=== PATIENT | female | born 1985 | race American Indian/Alaskan Native ===

== ENCOUNTER 2018-04-19 16:50 | Inpatient (IN) | payer OTHER ==
[~2018-04-19] VITALS: Ht 157.5 cm; Wt 110.7 kg
--- NOTE | ~2018-04-19 | OR ---
[facility] [address] [place], [place] [address] Draft DATE OF OPERATION: 04/20/2018 SURGEON: Josefina Mejía MD LABORER DRIVER: Radha Acuna DO. PREOPERATIVE DIAGNOSES: Term , gestational diabetes, prolonged deceleration phase, and arrest of dilation. POSTOPERATIVE DIAGNOSES: Term , gestational diabetes, prolonged deceleration phase, and arrest of dilation, delivered. PROCEDURE PERFORMED: Primary section with low segment transverse uterine incision. ANESTHESIA: Spinal. ESTIMATED BLOOD LOSS: 1000 mL. DRAINS: Patrick catheter. INDICATIONS AND FINDINGS: The patient is a 32-year-old female, 3, para 1-1-0-2, admitted at 38-6/7th weeks in active labor. Her has been complicated by morbid obesity with excess weight gain. She has gestational diabetes, which has been poorly controlled. The patient has also had polyhydramnios. She was admitted under labor and artificial rupture of membranes was carried out with a large amount of fluid seen. Over the next several hours, she progressed to approximately 5 cm, but then failed to make any further progress. At that point, Pitocin augmentation was begun. She eventually did progress to about 9.5 cm. However, she did not progress beyond that. She was unable to push past that lip and in fact, her cervix seemed to be more prominent with pushing. After approximately 3.5 hours, a decision was made to proceed with section. She was taken to the operating room where she was delivered a little boy from the LOT position via lower segment transverse uterine incision with Apgars of 8 and 9, and weight of 8 PATIENT NAME: CORTEZ MITCHELL OPERATIVE REPORT DATE OF : 89 REPORT #: [id number] PHYSICIAN: JOSEFINA MEJÍA MD PCP: WILLIAM SNELL REPORT IS CONFIDENTIAL AND NOT TO BE RELEASED WITHOUT AUTHORIZATION [facility] [address] [place], [place] [address] Draft pounds 13 ounces. The uterus, tubes, ovaries, and placenta appeared normal. There was some uterine atony, which responded to IV Pitocin as well as IM methargen. The baby was not engaged in the pelvis at all and was easily delivered from that position. DESCRIPTION OF PROCEDURE: The patient was prepped and draped in the supine position. A Pfannenstiel skin incision was made and carried down through the fascia. The incision was extended laterally. The inferior and superior fascial flaps were then created. The muscles were bluntly divided and the peritoneum entered, and the incision extended bluntly. The Gerard retractor was placed. The uterine incision was made at the upper aspect of the peritoneal reflection. The baby was delivered with the above findings and had got to the pediatric staff in attendance. The placenta was removed manually and the uterus explored with a lap tape assuring no remaining fragments. The edges of the incision were identified and the uterus closed in 2 layers using #0 Monocryl. The first layer was a running locking stitch and the second was a vertical imbricating stitch. Additional [id number] was required near the right side for control of bleeding. The abdomen was then copiously irrigated and inspected, and good hemostasis was noted. Evicel was doubled over the incision to aid in hemostasis, however. The retractor was removed and the peritoneum identified. An ACell graft was laid over the lower segment to aid in healing. The peritoneum was then closed with a running suture of 3-0 Vicryl. The muscles were brought together with interrupted sutures of #0 Vicryl. There was some bleeding at the inferior aspect of the inferior fascial flap and this was controlled with several sutures of #0 Vicryl. There was also some bleeding from the perforators on the upper right side underneath the fascia and this was also controlled with sutures of #0 Vicryl. This layer was then irrigated and found to be hemostatic. ACell powder was sprinkled over the muscles to aid in healing. Evicel was used at the lower aspect of the fascial flap for control of hemostasis as well. Following this, the fascia was closed from each angle to the midline with a running suture of #0 Vicryl. The subcutaneous tissue was irrigated and bleeding points controlled with cautery. The subcutaneous was closed with a running suture of 3-0 Vicryl. The skin was closed with rebel. All sponge and needle counts were correct. The patient tolerated the procedure well and was taken to the recovery room in good condition. Josefina Mejía MD PJW/MODL /[id number] PATIENT NAME: CORTEZ MITCHELL OPERATIVE REPORT DATE OF : 89 REPORT #: [id number] PHYSICIAN: JOSEFINA MEJÍA MD PCP: WILLIAM SNELL REPORT IS CONFIDENTIAL AND NOT TO BE RELEASED WITHOUT AUTHORIZATION [place] [id number] Draft cc: Radha Acuna, DO Copies: RADHA ACUNA DO ~ PATIENT NAME: CORTEZ MITCHELL KALA OPERATIVE REPORT DATE OF : 89 REPORT #: [id number] PHYSICIAN: JOSEFINA MEJÍA MD PCP: WILLIAM SNELL REPORT IS CONFIDENTIAL AND NOT TO BE RELEASED WITHOUT AUTHORIZATION
[~2018-04-19 16:50] MED LIST: AMOXICILLIN500 MG PO; CALCIUM 600 +1 EAC6 PO; EXJADE125 MG PO; FOLIC ACID 2.51 EACH PO; FOLIC ACID1 MG PO; IBUPROFEN800 MG PO; IRON45 MG PO; KEFLEX500 MG PO; LEVAQUIN500 MG PO; NORCO 5-325 TA1 EACH PO; OB COMPLETE WI1 EACH PO; PRENATAL PLUS1 EAC2 PO; VITAMIN D5000 UNIT PO; XELJANZ5 MG PO
--- NOTE | 2018-04-19 18:07 | PR ---
[facility] [address] [facility] [place], [place] [address] Signed Progress Notes IP Datetime Report Generated by ARUN: 04/19/2018 18:07 PROGRESS NOTES: [id number] Impression: Reassuring heart rate Procedures: Artificial ROM; Sterile Vag Exam Plan: Continue present management Informed Consent Obtain: Vaginal Delivery; Risks, Benefits and Alternatives Discussed VITAL SIGNS: [id number] Vital Signs: Reviewed; Within Normal Limits EXAM: [id number] Dilatation: 4.0 Effacement: 70 Station: -3 Uterine Contractions: q 1 to 4 min MEMBRANES: [id number] Membrane Status: Intact ROM Note: AROM with copious clear fluid seen Comments: Will continue to closely monitor. Fetus A: [id number] FHR Baseline: 140 Variability: Moderate 6-25bpm Accelerations: 15X15 Decelerations: None FHR Category: Category I Presentation: Vertex Comments on Fetus A: No evidence of metabolic acidosis. Fetus B: [id number] Signing Physician: Josefina Mejía MD Copies: ~ *Electronically Signed* 04/19/18 1807 JOSEFINA MEJÍA MD PATIENT NAME: CORTEZ MITCHELL PROGRESS NOTE DATE OF : 89 PHYSICIAN: JOSEFINA MEJÍA MD RPT #: [id number] REPORT IS CONFIDENTIAL AND NOT TO BE RELEASED WITHOUT AUTHORIZATION
--- NOTE | 2018-04-20 08:43 | PR ---
[facility] [address] [place], [place] [address] Signed Progress Notes IP Datetime Report Generated by ARUN: 04/20/2018 08:43 PROGRESS NOTES: [id number] Impression: Arrest of dilatation/descent Procedures: Sterile Vag Exam Plan: Deliver- Section Informed Consent Obtain: Section Delivery; Risks, Benefits and Alternatives Discussed VITAL SIGNS: [id number] Vital Signs: Reviewed; Within Normal Limits EXAM: [id number] Dilatation: 9.5 Effacement: 90 Station: -2 Uterine Contractions: q 1 to 3 min MEMBRANES: [id number] Membrane Status: Intact ROM Note: AROM with copious clear fluid seen Comments: No progress over the last 3 hrs. Pushing actually makes cervix thicker and more prominent. I do not feel we will be successful with a vaginal delivery and I am concerned about the size of the baby. Had previously discussed need for normal progress to consider vaginal delivery and she has fallen off the normal curve. Feel C/S is the safest option for delivery. The risks of C/S were discussed and I do feel she is at increased risk of bleeding given the long labor and size of baby. She had no questions and requested no further information. Fetus A: [id number] FHR Baseline: 140 Variability: Moderate 6-25bpm Accelerations: 10X10 Decelerations: Late FHR Category: Category II Presentation: Vertex Comments on Fetus A: overall reassuring but close observation required Fetus B: [id number] Signing Physician: Lynne Mejía MD Copies: *Electronically Signed* 04/20/18 0843 LYNNE MEJÍA MD PATIENT NAME: CORTEZ MITCHELL PROGRESS NOTE DATE OF : 89 PHYSICIAN: LYNNE MEJÍA MD RPT #: [id number] REPORT IS CONFIDENTIAL AND NOT TO BE RELEASED WITHOUT AUTHORIZATION [address] [place], [place] [address] Signed ~ *Electronically Signed* 04/20/18 08 LYNNE MEJÍA MD PATIENT NAME: CORTEZ MITCHELL PROGRESS NOTE DATE OF : 89 PHYSICIAN: LYNNE MEJÍA MD RPT #: [id number] REPORT IS CONFIDENTIAL AND NOT TO BE RELEASED WITHOUT AUTHORIZATION
--- NOTE | 2018-04-20 10:51 | NUR ---
04/20/18 1051 Liza Guillory 1040-PATIENT ARRIVED BACK TO ROOM 102 FOR PACU RECOVERY. PATIENT AWAKE DENIES PAIN OR NAUSEA. ST. UNABLE TO WIGGLE TOES. FUNDUS FIRM AT UMBILICUS LIGHT RUBRA DRAINAGE ON RAYMOND PAD. S.O AT BEDSIDE. GLUCOSE CHECKED 117 LR WITH 20 PITOCIN INFUSING TO LEFT HAND CDI.
--- NOTE | 2018-04-20 17:42 | PR ---
[facility] [place] [facility] [address] [facility] [place], [place] [address] Signed PP Progress Notes Datetime Report Generated by CPFranc: 04/20/2018 17:42 SUBJECTIVE: [id number] Pain: Within normal limits Pain Comments: felt diaphoretic when sat up. Nausea/Vomiting: Present Nausea/Vomiting Comments: Has needed O2 while asleep today. Flatus Comments: Denies SOB Vital Signs: [id number] Vital Signs: Reviewed Notable Details: tachy EXAM: [id number] Cardiovascular: Normal Respiratory: Abnormal Abdomen/Uterus: Normal Lochia: Normal Vulva/Perineum: Not Done Breasts: Not Done CVA Tenderness: Not Done Extremities: Normal Exam Comments: Lungs with diffuse exp wheezes IMPRESSION/PLAN/PROCEDURES: [id number] Other Impression: Wheezing, suspect some sleep apnea as well Other Plans: albuterol neb, IS, check CBC Progress Notes: Called with c/o O2 desat in pt and diaphoresis though her exam is normal other than her wheezing. I suspect she has some upper airway obstruction given her size and . Will exclude undiagnosed bleeding as well. Signing Physician: Josefina Mejía MD Copies: ~ *Electronically Signed* 04/20/18 174 JOSEFINA MEJÍA MD PATIENT NAME: CORTEZ MITCHELL PROGRESS NOTE DATE OF : 89 PHYSICIAN: JOSEFINA MEJÍA MD RPT #: [id number] REPORT IS CONFIDENTIAL AND NOT TO BE RELEASED WITHOUT AUTHORIZATION
--- NOTE | 2018-04-21 08:23 | PR ---
[facility] [address] [place], [place] [address] Signed PP Progress Notes Datetime Report Generated by CPFranc: 04/21/2018 08:23 SUBJECTIVE: [id number] Pain: Within normal limits Pain Comments: Has been sleeping most of the time Nausea/Vomiting: Denies Nausea/Vomiting Comments: Has needed O2 while asleep today. Flatus: No Flatus Comments: Denies SOB Vital Signs: [id number] Vital Signs: Reviewed; Within Normal Limits Notable Details: tachy EXAM: [id number] Cardiovascular: Normal Respiratory: Normal Abdomen/Uterus: Abnormal Lochia: Normal Vulva/Perineum: Not Done Breasts: Not Done CVA Tenderness: Not Done Extremities: Normal Incision: Normal Progress: Abnormal Exam Comments: Abdomen with active BS. Fundus firm, NT @ U-1. H/H 7.3/24, WBC 14.4, plat 292k IMPRESSION/PLAN/PROCEDURES: [id number] Impression: Normal progression Other Impression: Wheezing, suspect some sleep apnea as well Other Plans: ambulate, D/C heller, shower Procedures: None Progress Notes: Doing well though has not been at all since delivery. Signing Physician: Josefina Mejía MD Copies: ~ *Electronically Signed* 04/21/18 0823 JOSEFINA MEJÍA MD PATIENT NAME: CORTEZ MITCHELL PROGRESS NOTE DATE OF : 89 PHYSICIAN: JOSEFINA MEJÍA MD RPT #: [id number] REPORT IS CONFIDENTIAL AND NOT TO BE RELEASED WITHOUT AUTHORIZATION
--- NOTE | 2018-04-22 09:17 | PR ---
[facility] [address] [place], [place] [address] Signed PP Progress Notes Datetime Report Generated by ARUN: 04/22/2018 09:17 SUBJECTIVE: [id number] Pain: Within normal limits Pain Comments: Has been caught sleeping w/ baby in bed xs 2 Nausea/Vomiting: Denies Nausea/Vomiting Comments: Has needed O2 while asleep today. Flatus: Yes Flatus Comments: Denies SOB Vital Signs: [id number] Vital Signs: Reviewed; Within Normal Limits Notable Details: tachy EXAM: [id number] Cardiovascular: Not Done Respiratory: Not Done Abdomen/Uterus: Abnormal Lochia: Normal Vulva/Perineum: Not Done Breasts: Not Done CVA Tenderness: Not Done Extremities: Normal Incision: Normal Progress: Normal Exam Comments: Abdomen with active BS. Fundus firm, NT @ U. IMPRESSION/PLAN/PROCEDURES: [id number] Impression: Normal progression Other Impression: Wheezing, suspect some sleep apnea as well Plan: Remove rebel; Discharge Other Plans: ambulate, D/C heller, shower Procedures: None Progress Notes: Doing well. She is ready for D/C. Reiterated need for baby to sleep in their own space and not in her bed. Signing Physician: Josefina Mejía MD Copies: ~ *Electronically Signed* 04/22/18 0917 JOSEFINA MEJÍA MD PATIENT NAME: CORTEZ MITCHELL PROGRESS NOTE DATE OF : 89 PHYSICIAN: JOSEFINA MEJÍA MD RPT #: [id number] REPORT IS CONFIDENTIAL AND NOT TO BE RELEASED WITHOUT AUTHORIZATION
== END 2018-04-22 15:20 | disposition home or self-care (01) | DRG 787 ==
LOC: FBC 16:50
PROVIDERS: ADMIT Obstetrics & Gynecology
PROC: 10907ZC Drainage of Amniotic Fluid, Therapeutic from Products of Conception, Via Natural or Artificial Opening (ICD-10-PCS; 2018-04-19)
PROC: 10D00Z1 Extraction of Products of Conception, Low, Open Approach (ICD-10-PCS; principal; 2018-04-20 09:00)
DX: O24.420 Gestational diabetes mellitus in childbirth, diet controlled (principal); O99.324 Drug use complicating childbirth; Z3A.39 39 weeks gestation of pregnancy; Z37.0 Single live birth; O99.214 Obesity complicating childbirth; O32.2XX0 Maternal care for transverse and oblique lie, not applicable or unspecified; O36.63X0 Maternal care for excessive fetal growth, third trimester, not applicable or unspecified; O40.3XX0 Polyhydramnios, third trimester, not applicable or unspecified; O99.824 Streptococcus B carrier state complicating childbirth; F12.90 Cannabis use, unspecified, uncomplicated; O99.52 Diseases of the respiratory system complicating childbirth; J45.909 Unspecified asthma, uncomplicated; M06.9 Rheumatoid arthritis, unspecified; O99.89 Other specified diseases and conditions complicating pregnancy, childbirth and the puerperium; R06.2 Wheezing; E55.9 Vitamin D deficiency, unspecified; O99.284 Endocrine, nutritional and metabolic diseases complicating childbirth; O76 Abnormality in fetal heart rate and rhythm complicating labor and delivery; O62.1 Secondary uterine inertia; E66.01 Morbid (severe) obesity due to excess calories; O26.03 Excessive weight gain in pregnancy, third trimester; O75.89 Other specified complications of labor and delivery; Z79.899 Other long term (current) drug therapy; Z88.8 Allergy status to other drugs, medicaments and biological substances; Z87.891 Personal history of nicotine dependence
CPT/HCPCS: 01961; 36415; 85025; 85027; 94640; C1763; J0690; J2274; J2300; J2370; J2405; J2540; J2590; J3010; J7030; J7060; J7120

== ENCOUNTER 2019-12-18 14:38 | Emergency (ER) | payer BC, OTHER ==
[~2019-12-18] VITALS: Ht 157.5 cm; Wt 103.0 kg
--- OUTSIDE RECORDS SUMMARY | ~2019-12-18 | XMS | Clinical Summary ---
Demographics + + + | Address | [address] | | | [place] [address] | + + + | Home Phone | | + + + | Preferred Language | Unknown | + + + | Marital Status | Single | + + + | Spiritism Affiliation | 1041 | + + + | Race | Unknown | + + + | Ethnic Group | Not or | + + + Author + + + | Author | [facility] | | | and [place] | + + + | Organization | [facility] | | | and [place] | + + + | Address | Unknown | + + + | Phone | Unavailable | + + + Support + + +---------+ + | Name | Relationship | Address | Phone | + + +---------+ + | Aroldo Martinez | ECON | Unknown | | + + +---------+ + Care Team Providers + +------+ + | Care Web Press Operator Name | Role | Phone | + +------+ + PCP | Unavailable | + +------+ + Allergies Not on File Medications Not on file Active Problems Not on file Immunizations + + + + | Name | Administration Dates | Next Due | + + + + | INFLUENZA PF | 05/13/2016 | | | QUAD(PED/ADOL/ADULT) | | | | ,PSKT or VIAL | | | + + + + | PNEUMOCOCCAL | 05/13/2016 | | | POLYSACCHARIDE | | | | 23-VALENT (PPSV23) | | | + + + + Family History + +------+ + + | Relation | Name | Status | Comments | + +------+ + + | Father | | Alive | | + +------+ + + | Mother | | | | + +------+ + + Social History + +-------+ +--------+------+ | Tobacco Use | Types | Packs/Day | Years | Date | | | | | Used | | + +-------+ +--------+------+ | Former Smoker | | | | | + +-------+ +--------+------+ + + + | Sex Assigned at | Date Recorded | | | | + + + | Not on file | | + + + Last Filed Vital Signs + + + + + | Vital Sign | Reading | Time Taken | Comments | + + + + + | Blood Pressure | 127/59 | 05/27/2016 12:11 PM | | | | | PST | | + + + + + | Pulse | 90 | 05/27/2016 12:11 PM | | | | | PST | | + + + + + | Temperature | 36.8 C (98.3 F) | 05/27/2016 12:11 PM | | | | | PST | | + + + + + | Respiratory Rate | 20 | 05/27/2016 12:11 PM | | | | | PST | | + + + + + | Oxygen Saturation | - | - | | + + + + + | Inhaled Oxygen | - | - | | | Concentration | | | | + + + + + | Weight | 104.3 kg (229 lb 15 | 05/27/2016 12:11 PM | | | | oz) | PST | | + + + + + | Height | 157.5 cm (5' 2") | 05/27/2016 12:11 PM | | | | | PST | | + + + + + | Body Mass Index | 42.06 | 05/27/2016 12:11 PM | | | | | PST | | + + + + + Plan of Treatment + + + + + | Health Maintenance | Due Date | Last | Comments | | | | Done | | + + + + + | Vaccine: | | | | | Dtap/Tdap/Td (1 - | 7 | | | | Tdap) | | | | + + + + + | Cervical Cancer | | | | | Screening (Pap) | 8 | | | + + + + + | Vaccine: Influenza | | 05/13/19 | | | (#1) | 0 | 17 | | + + + + + Results Not on filefrom Last 3 Months
--- OUTSIDE RECORDS SUMMARY | ~2019-12-18 | XMS | Encounter Summary ---
Demographics + + + | Address | [address] | | | [place] [address] | + + + | Home Phone | | + + + | Preferred Language | Unknown | + + + | Marital Status | Single | + + + | Gnosticism Affiliation | 1041 | + + + | Race | Unknown | + + + | Ethnic Group | Not or | + + + Author + + + | Author | [facility] | | | and [place] | + + + | Organization | [facility] | | | and [...] Team Providers + +------+ + | Care Hot Stick Worker Name | Role | Phone | + +------+ + PCP | Unavailable | + +------+ + Encounter Details +--------+ + + + + | Date | Type | Department | Care Team | Description | +--------+ + + + + | 05/12/ | Hospital | [facility] | Conversion | Diagnosis unknown | | 2017 | Encounter | CONVERSION [address] | Transaction, | | | | | [address] | Provider Unknown | | | | | [place] | | | | | | [phone] | (Fax) | | | | | [phone] | | | +--------+ + + + + Social History + +-------+ +--------+------+ | Tobacco Use | Types | Packs/Day | Years | Date | | | | | Used | | + +-------+ +--------+------+ | Never Assessed | | | | | + +-------+ +--------+------+ + + + | Sex Assigned at | Date Recorded | | | | + + + | Not on file | | + + + documented as of this encounter Plan of Treatment Not on filedocumented as of this encounter Procedures + +--------+ + + + | Procedure Name | Priori | Date/Time | Associated Diagnosis | Comments | | | ty | | | | + +--------+ + + + | US OB LIMITED 1 OR | Routin | 05/12/2016 | | Results for this | | MORE FETUS | e | 12:30 PM | | procedure are in the | | | | PST | | results section. | + +--------+ + + + documented in this encounter Results US OB Limited 1 or More Fetus (05/12/2016 12:30 PM PST) + + | Specimen | + + | | + + + + + | Narrative | Performed At | + + + | This is a non-reportable procedure without a radiologist report and | | | is used for image storage only | | + + + + + | Procedure Note | + + | Jean Pierre Kebede Star - 11/23/2018 4:27 AM PDT This is a non-reportable procedure | | without a radiologist report and isused for image storage only | + + documented in this encounter Visit Diagnoses + + | Diagnosis | + + | Diagnosis unknown Other unknown and unspecified cause of morbidity or mortality | + + documented in this encounter"
--- OUTSIDE RECORDS SUMMARY | ~2019-12-18 | XMS | Encounter Summary ---
Demographics + + + | Address | [address] | | | [place] [address] | + + + | Home Phone | | + + + | Preferred Language | Unknown | + + + | Marital Status | Single | + + + | Pentecostalism Affiliation | [id number] | + + + [...] Team Providers + +------+ + | Care Rougher Operator Name | Role | Phone | + +------+ + PCP | Unavailable | + +------+ + Encounter Details +--------+ + + + + | Date | Type | Department | Care Team | Description | +--------+ + + + + | 05/12/ | Hospital | [facility] | Jake Urbano, | premature | | 2017 - | Encounter | [facility] | MD [address] | rupture of membranes | | | | AND DELIVERY [address] | [address], | in third trimester, | | 05/21/ | | [place] | [place] [address] | unspecified | | 2017 | | [place], [place] | [phone] | duration to onset of | | | | [address] | | labor; Maternal | | | | [phone] | | arthritis; Morbid | | | | | | obesity with BMI of | | | | | | 40.0-44.9, adult | | | | | | ([facility]) | +--------+ + + + + Social [...] + + documented as of this encounter Discharge Summaries Jake Urbano MD - 05/21/2016 7:31 AM PSTFormatting of this note might be different fr om the original. Discharge Summaries by Jake Urbano MD at 05/21/16730 Author: Jake Urbano MD Service: Obstetrics/Gynecology Author Type: Physician Filed: 05/21/1634 Date of Service: 05/21/16730 Status: Signed Cellar Supervisor: Jake Urbano MD (Physician) [facility] Service: Obstetrics & Gynecology Discharge Summary Date of Admission: 05/12/2016 Date of Discharge: 05/21/2016 Discharge Provider: Jake Urbano MD Treatment Team: Admitting Provider: Jkae Urbano MD Discharge Diagnoses: Principal Problem (Resolved): premature rupture of membranes in third trimester Active Problems: Maternal arthritis Morbid obesity with BMI of 40.0-44.9, adult (HCC) (normal spontaneous vaginal delivery) Outcome of delivery, single liveborn male Final Diagnoses: As above. Procedures: Significant Diagnostic Studies: Labs: routine labs Radiology: Ultrasound: Limited OB scan. BRIEF HISTORY OF PRESENTATION: Dayanna Mitchell is a 30 y.o. female who presented upon transport for PPROM. HOSPITAL COURSE: See the H&P and the Delivery Summary. Patient was induced at 34 wks 0 days EGA after PPROM for > 1 week. She had no intrapartum or issues. The infant boy went to the NICU as expected for this gestational age. 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 Allergies Allergen Reactions Remicade [Infliximab] Hives Prescriptions prior to admission Medication Sig Dispense Refill Last Dose ferrous sulfate, 65 FE, 324 (65 FE) MG EC tablet Take 65 mg of iron by mouth 3 (three) times daily with meals. 05/11/2016 at Unknown time MV-Min-Fe Fum-FA-DHA ( 1 PO) Take by mouth. 05/11/2016 at Unknown ti me DISCHARGE EXAM Vital Signs: BP 118/63 mmHg | Pulse 98 | Temp(Src) 98 F (36.7 C) (Oral) | Resp 18 | Ht 1.575 m (5' 2 ") | Wt 104.3 kg (229 lb 15 oz) | BMI 42.05 kg/m2 | ? No Patient Vitals for the past 24 hrs: BP Temp Temp src Pulse Resp 05/21/16 0137 118/63 mmHg - - 98 18 05/21/16 0136 - 98 F (36.7 C) Oral - - 05/20/16 2209 121/71 mmHg 97.4 F (36.3 C) Oral 100 18 05/20/16 1500 130/61 mmHg 97.7 F (36.5 C) Oral 95 20 05/20/16 0939 125/58 mmHg 97.7 F (36.5 C) Oral 100 20 Physical Exam Constitutional: She appears well-developed and well-nourished. No distress. Eyes: Conjunctivae are normal. No scleral icterus. Cardiovascular: Normal rate and regular rhythm. Pulmonary/Chest: Effort normal. Abdomina/Gl: Soft. Bowel sounds are normal. There is no tenderness. Genitourinary: Uterus normal. No vaginal discharge found. Musculoskeletal: Normal range of motion. She exhibits no edema. Neurological: She is alert. Psychiatric: She has a normal mood and affect. Nursing note and vitals reviewed. DATA CBC: Lab Results Component Value Date WBC 15.74* 05/20/2016 RBC 4.60 05/20/2016 HGB 10.1* 05/20/2016 HCT 32.0* 05/20/2016 MCV 69.4* 05/20/2016 MCH 22.0* 05/20/2016 MCHC 31.7* 05/20/2016 RDW 39.8 05/20/2016 PLT 390 05/20/2016 MPV 8.4 05/20/2016 DIFFTYPE MANUAL 05/19/2016 PLAN Patient Active Hospital Problem List: premature rupture of membranes in third trimester (05/12/2016) Assessment: resolved. Plan: n/a Maternal arthritis (05/12/2016) Assessment: not currently symptomatic. Plan: observation. Morbid obesity with BMI of 40.0-44.9, adult ([facility]) (05/12/2016) Assessment: no impact Plan: n/a (normal spontaneous vaginal delivery) (05/19/2016) Assessment: stable, normal vitals, no e/o PPE. Ok for discharge. Plan: Home today. Instructions reviewed. Rx's as written. F/U with usual provider or APW in 6 weeks. Outcome of delivery, single liveborn male (05/19/2016) Assessment: doing reasonably well, as expected for a 34 wk gestation male. Plan: Per neonatology. Disposition: Home Condition: Stable Code Status: Prior No discharge procedures on file. Follow up: Per Pt None [facility] [address] [place] [address], [address] [facility] [address] In 6 weeks Medication List START taking these medications Breast Pump (hospitalist medical director) QTY: 1 each Refills: 0 Doctor's comments: Patient needs double electric breast pump for infant in NICU Dispense and provide instruction as needed. ibuprofen 800 MG tablet QTY: 30 tablet Refills: 1 Commonly known as: MOTRIN Take 1 tablet by mouth every 8 (eight) hours as needed for Pain. oxyCODONE 5 MG immediate release tablet QTY: 30 tablet Refills: 0 Commonly known as: ROXICODONE Take 1 tablet by mouth every 4 (four) hours as needed. CONTINUE taking these medications ferrous sulfate (65 FE) 324 (65 FE) MG EC tablet Refills: 0 1 PO Refills: 0 Where to Get Your Medications You can get these medications from any pharmacy Bring a paper prescription for each of these medications - Breast Pump (hospitalist medical director) - ibuprofen 800 MG tablet - oxyCODONE 5 MG immediate release tablet Discharge took 20 minutes, to include final examination, discussion of admission, and prepa ration of prescriptions, instructions for on-going care, follow-up and documentation of disc harge summary. Jake Urbano MD 05/21/2016 documented in this encounter Progress Notes Conversion Transaction, Provider Unknown - 05/21/2016 11:04 PM PSTFormatting of this note m ight be different from the original. Nurse Progress Note by Madhavi Mata RN at 05/21/16 5408 Author: Madhavi Mata RN Service: (none) Author Type: Registered Nurse Filed: 05/21/16 4020 Date of Service: 05/21/162303 Status: Signed Cellar Supervisor: Madhavi Mata RN (Registered Nurse) Mother discharged home. She will be staying in NICU overnight with baby as FOB is working a nd will not be able to pick her up until tomorrow. Pt medicated. Walked over to NICU. onver junior Transaction, Provider Unknown - 05/21/2016 5:11 PM PST Progress Notes by Kristin Saldivar RN at 05/21/161710 Author: Kristin Saldivar RN Service: (none) Author Type: Registered Nurse Filed: 05/21/161715 Date of Service: 05/21/161710 Status: Signed Cellar Supervisor: Kristin Saldivar RN (Registered Nurse) RN at discussing discharge, medications, and self care. Pt does not seem to understand p adriana, and confused after multiple times of explaining plan for discharge. Pt will be staying the night with NICU first night after discharge, and after multiple attempts to make a plan, pt still confused. PT, along with SO sleeping most of the day, SO able to understand how to pick up man medications, and will follow through. Discharge paperwork gone over, disusing FU ap pts, and states, "Ok, I will make appt when I can," and denies questions or concerns. RX's, given to her at this time. Kristin Saldivar onver junior Transaction, Provider Unknown - 05/21/2016 2:57 PM PST Case Management by MAGGY Bautista at 05/21/161456 Author: MAGGY Bautista Service: Neonatology Author Type: Rn Gyn Filed: 05/21/161456 Date of Service: 05/21/161456 Status: Signed Cellar Supervisor: MAGGY Bautista (Rn Gyn) This DIRECTOR OF EVENT SALES student talked with BRANDO Foster before visiting with MOB, to see if she had any soci al concerns. RN stated that BABAK Alan seemed to have a hard time grasping information; she had to repeat things over and over. RN didn't report any other concerns, and [facility] BABAK was alone at the time of assessment. MOB verified her information on her facesheet. BABAK stated that baby's name is "Jerzy Bansal". BABAK lives with FOJohana Martinez and her 3 yo g tali Valdez. FOB had to return to his full-time work, but BABAK is taking time off from her wo rk for the time being. BABAK stated that she has strong social support, including her sister, who had a pre-term baby as well. BABAK plans on visiting baby and has access to transportation. This DIRECTOR OF EVENT SALES student explained [employer] and let BABAK know that she can ask the family caseworker or nurses for a referral should she ever want one, as she qualifies with her Medicaid. BABAK doesn't have a car seat and crib yet for baby, but stated that she has plans to buy the se things soon because she got paid today. BABAK has [facility] and DIRECTOR OF EVENT SALES student explained that BABAK ca n possibly borrow a breast-pump from [facility]. BABAK plans on and came to s ee her earlier today. BABAK doesn't have a map plotter yet, but is planning on getting one at [facility]. Her 3yo's map plotter is at the same pediatric center. BABAK reported having no history of depression or PPD, but this DIRECTOR OF EVENT SALES student explained what PP D is and it's symptoms. BABAK now knows that if any of these symptoms should occur that she sh ould contact her OB, Dr. Obrien. This DIRECTOR OF EVENT SALES student provided BABAK with a PPD pamphlet and told her to share it with her friends and family as well. This DIRECTOR OF EVENT SALES student wrote ABDULLAHI Johnson's number on the board at told her to call if any qu estions or concerns should arise. --Linda Domínguez, DIRECTOR OF EVENT SALES student onver junior Transaction, Provider Unknown - 05/21/2016 12:00 PM PST Note by Alexandria Pozo RN at 05/21/16 1200 Author: Alexandria Pozo RN Service: (none) Author Type: Registered Nurse Filed: 05/21/16 5609 Date of Service: 02/10/17 1200 Status: Signed Cellar Supervisor: Alexandria Pozo, RN (Registered Nurse) Pt with baby in NICU. Pt is pumping every 3 hours and not seeing any colostrum yet. Tonight will be 48 hours since . Pt states that with her first baby the milk was in by now and that she breastfed for 4 months. Upon further assessment the patient did breastfeed that baby but also supplemented with formula for the entire duration. Attempted hand expres junior and noticed she has very flat soft wide spread breast tissue and that the right nipple is inverted and left is very flat. She was very unfamiliar with the concept of hand expressi on. Unable to express any drops of colostrum and has had none in pump either. Encouraged to continue pumping but also discussed my assessment of breast tissue and the possibility of ve ry limited milk production associated with tissue shape. Polly Acharya MD - 05/20/2016 8:49 AM PSTFormatting of this note might be different from t sebastian original. Progress Notes by Polly Pace MD-R1 at 05/20/16848 Author: MYCHAL Layne Service: Hospitalist Author Type: Resident-Y1 Filed: 05/20/16904 Date of Service: 05/20/16848 Status: Attested Cellar Supervisor: NADER LayneR1 (Resident-Y1) Cosigner: Jake Urbano MD at 918 Attestation signed by Jake Urbano MD at 05/20/16918 Patient seen and examined along with the family program specialist. Assessment and plan dis cussed. I concur with the note as written above. Patient will be observed for another 24 h ours and likely discharged home sometime tomorrow. It is anticipated that her baby will con tinue to require admission to the Intensive Care Unit. [facility] Service: Obstetrics & Gynecology post Progress Note Hospital Day: LOS: 8 days SUBJECTIVE The patient is a 30 y.o. female at 34w1d admitted for premature rupture of membranes. Patient had a spontaneous vaginal delivery at 34 weeks and baby was transorted t o NICU for further observation. Baby has been doing well. Patient states she has some abdomi nal cramping still, but has improved. She also still has some vaginal bleeding but is minima l. She is eating without nausea or vomiting, and has been ambulating. Scheduled Medications docusate calcium 240 mg Oral Daily ibuprofen 600 mg Oral 4 times per day multivitamin & minerals w iron/FA 1 tablet Oral Daily with breakfast Continuous Infusions oxytocin PRN Medications acetaminophen, ammonia aromatic, eakxrgdhik-ifldjjy-grpl vera, calcium carbonate, carbopros t, diphenhydrAMINE, ibuprofen FOLLOWED BY ibuprofen, lanolin, loperamide, loperamide, me thylergonovine, misoprostol OR misoprostol, oxyCODONE OR oxyCODONE, simethicone, derek ine lock IV - prn tolerating PO fluid AND sodium chloride, witch lorrie-glycerin OBJECTIVE Vital Signs: BP 127/75 mmHg | Pulse 100 | Temp(Src) 97.7 F (36.5 C) (Oral) | Resp 20 | Ht 1.575 m (5 ' 2") | Wt 104.3 kg (229 lb 15 oz) | BMI 42.05 kg/m2 | ? No General: alert, appears stated age and cooperative Cardio: S1, s2 normal, no murmurs pulmonary: Clear to ausculation bilaterally, no wheezing, rales, rhonchi. abdominal: Abdomin nontender, soft, fundus firm. DATA CBC: Lab Results Component Value Date WBC 15.74* 05/20/2016 RBC 4.60 05/20/2016 HGB 10.1* 05/20/2016 HCT 32.0* 05/20/2016 MCV 69.4* 05/20/2016 MCH 22.0* 05/20/2016 MCHC 31.7* 05/20/2016 RDW 39.8 05/20/2016 PLT 390 05/20/2016 MPV 8.4 05/20/2016 DIFFTYPE MANUAL 05/19/2016 PROBLEM LIST Active Problems: Maternal arthritis Morbid obesity with BMI of 40.0-44.9, adult (HCC) (normal spontaneous vaginal delivery) Outcome of delivery, single liveborn male ASSESSMENT & PLAN Patient Active Hospital Problem List: (normal spontaneous vaginal delivery) (05/19/2016) Assessment: Patient is doing well after delivery. She still has some abdominal cramping, but is well controlled with pain medications. Plan: Continue to monitor and continue with pain regime for now. Baby is currently being followed in the NICU for delivery at 34 weeks and is doing well. Polly Pace MD-R1 05/20/2016 onversion Trans action, Provider Unknown - 05/19/2016 6:01 PM PST Note by Evita Greene RN at 05/19/161800 Author: Evita Greene RN Service: (none) Author Type: Registered Nurse Filed: 05/19/161801 Date of Service: 05/19/161800 Status: Signed Cellar Supervisor: Evita Greene RN (Registered Nurse) Showed mom how to use and clean electric breast pump. Encouraged pumping every 2 to 3 hour s for 15 minutes. Gave Rx for breast pump. Mom states she breast fed last baby and is fami liar with breast pump. uCharlee cox MD - 05/19/2016 8:34 AM PSTFormatting of this note might be different fro m the original. Progress Notes by Charlee Carroll MD at 05/19/16833 Author: Charlee Carroll MD Service: Obstetrics/Gynecology Author Type: Physician Filed: 05/19/16835 Date of Service: 05/19/16833 Status: Signed Cellar Supervisor: Charlee Carroll MD (Physician) [facility] Service: Obstetrics & Gynecology Note Patient is 34 weeks today. PPROm s/P steroids and antibiotics. Vitals - 1 value per visit 05/12/2016 05/17/2016 05/19/2016 SYSTOLIC - - 156 DIASTOLIC - - 72 PULSE - - 104 TEMPERATURE - - 98.2 RESPIRATIONS - - 18 WEIGHT (lb) - 231.7 - HEIGHT 5' 2" - - BMI 42.37 kg/m2 - - PAIN SCALE - SCORE - - 0 Gen NAD ABD: Gravid , non tender. Aguila irregular contractions. FHT 145 , reactive. SVE 2/50/-3 Plan: Will start Pitocin for IOL. She does not desire anything for pain. Clear liquids. COnsent for induction signed. RBA of oxytocin use was discussed along with need of monitoring to prevent effects of hype rstimulation. All questions answered to her satisfaction. Use of monitoring devices - external or internal as required was also discussed. Rapid GBS negative. Charlee Carroll MD 05/19/2016 onversion Tr ansaction, Provider Unknown - 05/19/2016 3:18 AM PSTFormatting of this note might be differ ent from the original. Nurse Progress Note by Lindy Virk RN at 05/19/16317 Author: Lindy Virk RN Service: Obstetrics/Gynecology Author Type: Registered Nurse Filed: 05/19/16318 Date of Service: 05/19/16317 Status: Signed Cellar Supervisor: Lindy Virk RN (Registered Nurse) Patient sleeping with right tilt, no distress noted, promoting rest at this time. Cody Farias E - 05/18/2016 2:20 PM PSTFormatting of this note might be different from the or iginal. Progress Notes by Cody Thurston MD at 05/18/16 1425 Author: Cody Thurston MD Service: Obstetrics/Gynecology Author Type: Physician Filed: 05/18/16 1420 Date of Service: 05/18/161419 Status: Addendum Cellar Supervisor: Cody Thurston MD (Physician) Related Notes: Original Note by Cody Thurston MD (Physician) filed at 05/18/16 1425 [facility] Service: Obstetrics & Gynecology Antepartum Progress Note Hospital Day: LOS: 6 days SUBJECTIVE The patient is a 30 y.o. female at 33w6d admitted for pprom. Doing well and reports no changes in status Fetus is still active Scheduled Medications amoxicillin 500 mg Oral 3 times per day docusate sodium 100 mg Oral Daily lidocaine buffered 1% 0.5 mL Intradermal Once sodium chloride 10 mL Intravenous Q8H Continuous Infusions lactated ringers Stopped (05/13/161941) PRN Medications acetaminophen, calcium carbonate, lactated ringers, magnesium hydroxide, ondansetron OBJECTIVE Vital Signs: BP 132/78 mmHg | Pulse 90 | Temp(Src) 98.1 F (36.7 C) (Axillary) | Resp 18 | Ht 1.575 m (5' 2") | Wt 105.1 kg (231 lb 11.3 oz) | BMI 42.37 kg/m2 | ? No General: alert, appears stated age and cooperative Fundal Height: size equals dates FHT: Assisted Variability: moderate Accelerations: yes Decelerations: none TOCO: none Cervical Exam: Not indicated Melendez Score: Not Indicated DATA No results found for this or any previous visit (from the past 24 hour(s)). PROBLEM LIST Principal Problem: premature rupture of membranes in third trimester Active Problems: Maternal arthritis Morbid obesity with BMI of 40.0-44.9, adult ([facility]) ASSESSMENT & PLAN 33 6/7 weeks anticipate induction tomorrow Cont current care until then Category 1 tracing today Regardless of gbs status i use abx during labor for ptl Will run rapid gbs for info for nicu and licensed bondsman doc that will be laboring pt CODY THURSTON MD 05/18/2016 Cody Das - 05/17/2016 9:54 AM PST Progress Notes by Cody Thurston MD at 05/17/16 0954 Author: Cody Thurston MD Service: Obstetrics/Gynecology Author Type: Physician Filed: 05/17/16 1001 Date of Service: 05/17/16 0954 Status: Signed Cellar Supervisor: Cody Thurston MD (Physician) [facility] Service: Obstetrics & Gynecology Antepartum Progress Note Hospital Day: LOS: 5 days SUBJECTIVE The patient is a 30 y.o. female at 33w5d admitted for PPROM. doing well and without complaints Active fetus Clear non foul fluid still egressing from vagina Scheduled Medications amoxicillin 500 mg Oral 3 times per day docusate sodium 100 mg Oral Daily lidocaine buffered 1% 0.5 mL Intradermal Once sodium chloride 10 mL Intravenous Q8H Continuous Infusions lactated ringers Stopped (05/13/161941) PRN Medications acetaminophen, calcium carbonate, lactated ringers, magnesium hydroxide, ondansetron OBJECTIVE Vital Signs: BP 106/57 mmHg | Pulse 102 | Temp(Src) 97.8 F (36.6 C) (Oral) | Resp 19 | Ht 1.575 m (5 ' 2") | Wt 105.1 kg (231 lb 11.3 oz) | BMI 42.37 kg/m2 | ? No General: alert, appears stated age and cooperative Fundal Height: size equals dates FHT: Assisted Variability: moderate Accelerations: yes Decelerations: none TOCO: Rare contractions noted on monitor and by palpation Cervical Exam: Deferred Melendez Score: Not Indicated DATA CBC: Lab Results Component Value Date WBC 11.81* 05/12/2016 RBC 4.32 05/12/2016 HGB 9.9* 05/12/2016 HCT 30.9* 05/12/2016 MCV 71.5* 05/12/2016 MCH 23.0* 05/12/2016 MCHC 32.2 05/12/2016 RDW 40.7 05/12/2016 PLT 337 05/12/2016 MPV 7.8 05/12/2016 DIFFTYPE AUTOMATED 05/12/2016 PROBLEM LIST Principal Problem: premature rupture of membranes in third trimester Active Problems: Maternal arthritis Morbid obesity with BMI of 40.0-44.9, adult (HCC) ASSESSMENT & PLAN plan induction wed Will check fasting glc in am and A1c Cont with expect management CODY THURSTON MD 05/17/2016 onversion Transactio n, Provider Unknown - 05/17/2016 4:30 AM PST Nurse Progress Note by Harriet Farmer RN at 05/17/16429 Author: Harriet Farmer RN Service: Obstetrics/Gynecology Author Type: Registered Nurse Filed: 05/17/16436 Date of Service: 05/17/16429 Status: Signed Cellar Supervisor: Harriet Farmer RN (Registered Nurse) Sleeping soundly on left side. Respirations regular and even. Left undisturbed to promote rest. uizCody arias E - 05/16/2016 8:44 AM PSTFormatting of this note might be different from the or iginal. Progress Notes by Cody Thurston MD at 05/16/16843 Author: Cody Thurston MD Service: Obstetrics/Gynecology Author Type: Physician Filed: 05/16/162030 Date of Service: 05/16/16843 Status: Signed Cellar Supervisor: Cody Thurston MD (Physician) [facility] Service: Obstetrics & Gynecology Antepartum Progress Note Hospital Day: LOS: 4 days SUBJECTIVE The patient is a 30 y.o. female at 33w4d admitted for PROM. Patient contin ues to be without complaints, does continue to leak fluid, reports active fetus. Denies vag inal bleeding. Scheduled Medications amoxicillin 500 mg Oral 3 times per day azithromycin 500 mg Oral Daily docusate sodium 100 mg Oral Daily lidocaine buffered 1% 0.5 mL Intradermal Once sodium chloride 10 mL Intravenous Q8H Continuous Infusions lactated ringers Stopped (05/13/161941) PRN Medications acetaminophen, calcium carbonate, lactated ringers, magnesium hydroxide, ondansetron OBJECTIVE Vital Signs: BP 121/60 mmHg | Pulse 97 | Temp(Src) 98.2 F (36.8 C) (Oral) | Resp 22 | Ht 1.575 m (5' 2") | Wt 104.7 kg (230 lb 13.2 oz) | BMI 42.21 kg/m2 | ? No General: alert, appears stated age and cooperative FHT: Assisted Variability: moderate Accelerations: yes Decelerations: none TOCO: none Cervical Exam: Deferred Melendez Score: Not Indicated DATA No results found for this or any previous visit (from the past 24 hour(s)). DAYANNA MITCHELL 1985 US BPP WO NON STRESS TESTING 05/16/2016 10:43 AM HISTORY: premature rupture of membranes, follow-up COMPARISON: 05/13/2016 TECHNIQUE: Imaging was performed using a curved array transabdominal transducer. Grayscal e, color flow and M-mode techniques were utilized. FINDINGS: The position: Cephalic. Placental position: Anterior. Amniotic fluid index: 6.2 cm. The largest single pocket of amniotic fluid measures 3.1 cm. BIOPHYSICAL PROFILE: Movement = 2 Tone = 2 Breathing = 0 AFV = 2 Biophysical Profile Score = 6/8 heart rate = 154 beats/min IMPRESSION: 1. Biophysical Profile Score = 6/8 LEM LIST Principal Problem: premature rupture of membranes in third trimester Active Problems: Maternal arthritis Morbid obesity with BMI of 40.0-44.9, adult ([facility]) ASSESSMENT & PLAN 33week 4 day gestation today, premature rupture of membranes 4 days ago Stable without evidence of labor or infection We will convert to by mouth antibiotics to complete a one-week course Steroids have been on board in today after admission her course has been completed Her heart rate tracing remained reactive and reassuring Plan is to deliver at 34 weeks which will be middle of next week CODY THURSTON MD 05/16/2016 onversion Transactio n, Provider Unknown - 05/16/2016 6:15 AM PST Nurse Progress Note by Harriet Farmer RN at 05/16/16 0615 Author: Harriet Farmer RN Service: Obstetrics/Gynecology Author Type: Registered Nurse Filed: 05/16/16 0645 Date of Service: 05/16/16614 Status: Signed Cellar Supervisor: Harriet Farmer RN (Registered Nurse) Patient put licensed bondsman light to say IV site painful. Site swollen, obvious infiltrate. IV di scontinued at this time, will leave out for short time until Dr rounds. Next dose of antibi otics due @ 1130. onver junior Transaction, Provider Unknown - 05/15/2016 1:43 PM PST Nurse Progress Note by Phyllis Emery RN at 05/15/16 134 Author: Phyllis Emery RN Service: Obstetrics/Gynecology Author Type: Registered Nurse Filed: 05/15/16 1347 Date of Service: 05/15/16 134 Status: Signed Cellar Supervisor: Phyllis Emery RN (Registered Nurse) Awoke from sleep after she has been sleeping at each hourly rounding today after morning as sessment. Informed her again that she needed to ambulate halls per MD order. She said she w ould comply with this after using the restroom. FranciCody arias E - 05/15/2016 8:36 AM PSTFormatting of this note might be different from the or iginal. Progress Notes by Cody Thurston MD at 05/15/16835 Author: Cody Thurston MD Service: Obstetrics/Gynecology Author Type: Physician Filed: 05/15/16 0947 Date of Service: 05/15/16835 Status: Signed Cellar Supervisor: Cody Thurston MD (Physician) [facility] Service: Obstetrics & Gynecology Antepartum Progress Note Hospital Day: LOS: 3 days SUBJECTIVE The patient is a 30 y.o. female at 33w3d admitted for premature rupture mem banner. Patient denies significant loss of fluid, reports her fetus is active, no symptoms of preeclampsia or systemic signs or symptoms of illness. heart tracing remained reac tive and reassuring. There was a dating discrepancy. Initial EGA dating criteria was place d by nursing on admission and I did not catch that the due date was not the true EDC. Has b een corrected today, but changes from what we thought was a 34 week gestation to a 33 week 3 day gestation with an JOSESITO of June 30. I have discussed this clerical error with the patie nt and adjusted her expectations regarding hospitalization duration and delivery accordingly Scheduled Medications ampicillin 1 g Intravenous Q6H azithromycin 500 mg Oral Daily docusate sodium 100 mg Oral Daily lidocaine buffered 1% 0.5 mL Intradermal Once sodium chloride 10 mL Intravenous Q8H Continuous Infusions lactated ringers Stopped (05/13/161941) PRN Medications acetaminophen, calcium carbonate, lactated ringers, magnesium hydroxide, ondansetron OBJECTIVE Vital Signs: BP 131/67 mmHg | Pulse 91 | Temp(Src) 98.3 F (36.8 C) (Oral) | Resp 18 | Ht 1.575 m (5' 2") | Wt 104.7 kg (230 lb 13.2 oz) | BMI 42.21 kg/m2 | ? No General: alert, appears stated age and cooperative Fundal Height: size greater than dates, patient is obese and likely accounts for this FHT: Assisted Variability: moderate Accelerations: yes Decelerations: None TOCO: none Cervical Exam: Deferred Melendez Score: Deferred DATA No results found for this or any previous visit (from the past 24 hour(s)). PROBLEM LIST Principal Problem: premature rupture of membranes in third trimester Active Problems: Maternal arthritis Morbid obesity with BMI of 40.0-44.9, adult ([facility]) ASSESSMENT & PLAN Stable and doing well Membranes ruptured now for about 3 days Patient is on antibiotic therapy has received steroids No indication of impending labor Reassuring maternal and status at this time, , the heart rate tracing is catego ry 1 Plan will be to induce at about 34 weeks gestational age Patient is informed of this plan and discomfort with that Working JOSESITO is June 30 and a 9 week 2 day ultrasound CODY THURSTON MD 05/15/2016 ody figueroa - 05/14/2016 11:00 PM PST Progress Notes by Cody Thurston MD at 05/14/162299 Author: Cody Thurston MD Service: Obstetrics/Gynecology Author Type: Physician Filed: 05/15/16 0008 Date of Service: 05/14/162299 Status: Signed Cellar Supervisor: Cody Thurston MD (Physician) [facility] Service: Obstetrics & Gynecology Antepartum Progress Note Hospital Day: LOS: 3 days SUBJECTIVE The patient is a 30 y.o. female at 34w0d admitted for premature rupture mem branes. Throughout the day patient without complaints or problems She reports her fetus is active Continues have small amount of clear fluid leakage Denies systemic symptoms of illness Denies foul vaginal discharge Scheduled Medications ampicillin 1 g Intravenous Q6H azithromycin 500 mg Oral Daily docusate sodium 100 mg Oral Daily lidocaine buffered 1% 0.5 mL Intradermal Once sodium chloride 10 mL Intravenous Q8H Continuous Infusions lactated ringers Stopped (05/13/161941) PRN Medications acetaminophen, calcium carbonate, lactated ringers, magnesium hydroxide, ondansetron OBJECTIVE Vital Signs: BP 126/67 mmHg | Pulse 87 | Temp(Src) 98.2 F (36.8 C) (Oral) | Resp 16 | Ht 1.575 m (5' 2") | Wt 105.1 kg (231 lb 11.3 oz) | BMI 42.37 kg/m2 | ? No General: alert, appears stated age and cooperative Fundal Height: size equals dates but this is most likely due to the fact that she is morbid ly obese despite having premature rupture membranes FHT: Assisted Variability: moderate Accelerations: yes Decelerations: none TOCO: none Cervical Exam: Not indicated Melendez Score: Not Indicated DATA No results found for this or any previous visit (from the past 24 hour(s)). PROBLEM LIST Principal Problem: premature rupture of membranes in third trimester Active Problems: Maternal arthritis Morbid obesity with BMI of 40.0-44.9, adult ([facility]) ASSESSMENT & PLAN 33 week 6 day gestation Induction of labor to be carried out in the next couple of days Antibiotics until then Patient did receive steroids CODY THURSTON MD 05/15/2016 onversion Transactio n, Provider Unknown - 05/13/2016 4:30 PM PST Progress Notes by Sylwia Smith RN at 05/13/16 1630 Author: Sylwia Smith RN Service: (none) Author Type: Registered Nurse Filed: 05/13/16 191 Date of Service: 05/13/16 1630 Status: Signed Cellar Supervisor: Sylwia Smith RN (Registered Nurse) Report given to Ruperto Steel RN Cody Farias - 05/13/2016 11:33 AM PSTFormatting of this note might be different from the or iginal. Progress Notes by Cody Thurston MD at 05/13/16 1133 Author: Cody Thurston MD Service: Obstetrics/Gynecology Author Type: Physician Filed: 05/13/16 5257 Date of Service: 05/13/16 1133 Status: Signed Cellar Supervisor: Cody Thurston MD (Physician) Related Notes: Original Note by Cody hTurston MD (Physician) filed at 05/13/16 1134 Hospital day #1: SUBJECTIVE Sleeping, when awakened she is without complaints, denies any significant leakage, reports her fetus is active and denies vaginal bleeding. OBJECTIVE Vital signs are normal. She is afebrile. Abdominal remains soft and nontender. Perineum - n o significant fluid egress and nonfoul. Extremities are nontender. LABS Have been reviewed. ASSESSMENT AND PLAN 1. Thirty-three week-5-day gestation. 2. premature rupture of membranes about 36 hours ago. 3. The patient is currently here on bed rest, has received steroids and is on ampicillin an d Zithromax. The plan is to induce at 34 weeks. We will do that on Tuesday or Tuesday. The p atient is agreeable to the plan. Not noted above, but the heart rate tracing has been reactive and reassuring, category 1. documented in this en counter H&P Notes Cody Thurston - 05/12/2016 10:51 PM PST H&P by Cody Thurston MD at 05/12/162250 Author: Cody Thurston MD Service: Obstetrics/Gynecology Author Type: Physician Filed: 05/12/162299 Date of Service: 05/12/162250 Status: Signed Cellar Supervisor: Cody Thurston MD (Physician) [facility] Service: Obstetrics & Gynecology Obstetrical antepartum History & Physical Primary OB Clinician: Dr. Thurston CHIEF COMPLAINT: Ruptured membranes early a.m. hours of May 12 HISTORY OF PRESENT ILLNESS The patient is a 30 y.o. female at 33w4d (Estimated Date of Delivery: 06/26/16) who presents with premature rupture membranes. She presented to [facility] in [facility] stating that sometime in the middle the night her water had likely rupt ured. She reports that it has been clear, that was confirmed by the OB physician in [facility] on as well. Testing for gross rupture membranes was positive as well as her physical exam. Her cervix was not digitally evaluated. Ultrasound showed the fetus to be vertex/somewhat transverse and cervix did not appear to be dilated. See her chart notes for her weigh t from her ultrasound today. Patient is otherwise without significant problems or complaint s per her report. She states her fetus is active, she does not have any vaginal bleeding or unusual discharge prior to the spontaneous rupture. Has not had intercourse recently. She has a history of 1 prior term delivery. She did receive steroids 1 dose as well as some antibiotics prior to her transfer here by ambulance earlier today on 12 May. Since she has been here the heart rate tracing was reassuring. She is not actively leaking flui d. She reports the fetus remains active. She denies any vaginal bleeding or other problems or concerns. She denies any systemic symptoms of illness either. No urinary tract complai nts. 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 Allergies Allergen Reactions Remicade [Infliximab] Hives Prescriptions prior to admission Medication Sig Dispense Refill Last Dose ferrous sulfate, 65 FE, 324 (65 FE) MG EC tablet Take 65 mg of iron by mouth 3 (three) times daily with meals. 05/11/2016 at Unknown time MV-Min-Fe Fum-FA-DHA ( 1 PO) Take by mouth. 05/11/2016 at Unknown ti me obstetrical history: One prior vaginal delivery at term No family history on file. History Smoking status Former Smoker Smokeless tobacco Not on file History Alcohol Use No History Drug Use No PHYSICAL EXAM Vital Signs: BP 135/72 mmHg | Pulse 101 | Temp(Src) 97.8 F (36.6 C) (Oral) | Resp 18 | Ht 1.575 m (5 ' 2") | Wt 106.278 kg (234 lb 4.8 oz) | BMI 42.84 kg/m2 | ? No Gen.: Morbidly obese -appearing female in no distress Head and neck: normocephalic atraumatic Chest: Clear bilaterally Cardiovascular: Regular rate and rhythm Abdomen: Gravid, soft, nontender heart rate tracing: Category one Extremities: Nontender, minimal edema, normal reflexes Skin: Warm and dry Cervical Exam: *Dilation: Deferred due to the premature rupture membranes Rupture Date: 05/12/16 Rupture Time: 0700 *Color: Clear DATA CBC: No results found for: WBC, RBC, HGB, HCT, MCV, MCH, MCHC, RDW, PLT, MPV, DIFFTYPE Platelets: No results found for: PLT CMP: No results found for: NA, K, CL, CO2, ANIONGAP, GLUF, BUN, CREATININE, BCR, CA, PROT, ALB, GLOB, AGRATIO, BILITOT, ALP, AST, ALT, EGFR Hepatic Function Panel: No results found for: PROT, ALB, BILITOT, BILIDIR, ALP, AST, ALT HgBA1c: No results found for: HGBA1C, LABGLYC TSH: No results found for: TSH, TSHNEO ABO/RH(D) Date Value Ref Range Status 10/24/2015 A positive Final , ANTIBODY SCREEN Date Value Ref Range Status 10/24/2015 negative Final , No results found for: HCT, No results found for: HGB, No results found for: HEPBSAG, TREP PALLIDUM BY EIA Date Value Ref Range Status 10/24/2015 negative Final , RUBELLA Date Value Ref Range Status 10/24/2015 immune Final , No results found for: HIV1X2, No results found for: GLUTP PROBLEM LIST Principal Problem: premature rupture of membranes in third trimester Active Problems: Maternal arthritis Morbid obesity with BMI of 40.0-44.9, adult ([facility]) ASSESSMENT & PLAN 30-year-old 2 para 1 at 33 weeks 4 days gestation premature rupture membranes without obvious inciting cause Receive steroids yesterday and the plan is to give them again tomorrow Magnesium if needed to prolong while steroids become active, would not tocolyse o f any evidence of infection obviously. Hope is to get the patient to 34 weeks which will be this upcoming Tuesday and then would pr oceed with delivery at 34 weeks. Deliver sooner for maternal or indications patient is aware of the plan and is in agreement with this plan 55 min required for this visit. More than 50% spent with face to face care, counseling and/ or coordination of care. CODY THURSTON MD 05/12/2016 documented in this en counter Miscellaneous Notes L&D Delivery Note - Jake Urbano MD - 05/19/2016 4:54 PM PSTFormatting of this note m ight be different from the original. L&D Delivery Note by Jake Urbano MD at 05/19/16 8055 Author: Jaek Urbano MD Service: Obstetrics/Gynecology Author Type: Physician Filed: 05/19/16 1199 Date of Service: 05/19/16 6742 Status: Signed Cellar Supervisor: Jake Urbano MD (Physician) [facility] Service: Obstetrics & Gynecology Delivery Summary MATERNAL DATA Dayanna Mitchell 30 y.o. 34w0d Antepartum Complications: See History & Physical Intrapartum Complications: Category II FHR Tracing Antibiotics during Labor: Yes; ampicillin, started over 4 hrs prior to delivery Delivery Type: Vaginal, Spontaneous Delivery Attempted: Successful: Laceration: None Episiotomy: None Suture: EBL: 250 mL Final sponge count correct: Yes Final needle/sharps count correct: Yes Placenta: Delivered: @ Removal: Appearance: Disposition: Cord: Complications: Blood gases sent? DATA Name: Magdiel Mitchell Date: 05/19/2016 Time: 1635 Sex: male Weight: Length: Apgars (1,5): , Living? NARRATIVE: Patient was admitted on 12 May at 33 weeks and zero days with prolo nged rupture of membranes. She received betamethasone and antibiotics initially in the hosp ital at [facility] prior to transport and completed those courses here after transport was effected. Patient continued to have clear amniorrhea without evidence of chorioamnionit is or compromise. There was initially some confusion as to her estimated gestational age, but this was clarified shortly after admission and only altered the management plan in pushing the date of induction back until today. Rapid GBS testing was negative. GBS cultur e is pending. Patient was restarted on ampicillin for delivery prophylaxis. The pa tient was induced with oxytocin and had a good response with good progress in the active pha se on 12 mIU per minute. heart rate tracing remained normal until the patient entered the second stage whereupon she began having moderately deep variable decelerations for the duration of her contractions. The vertex was directly occiput posterior at that point . With good maternal expulsive efforts and manual rotation, the vertex eventually rotated a round to right occiput anterior which is how the baby delivered. The remaining portion of t he infant was delivered without difficulty or delay after reduction of a single relatively l oose nuchal cord. had fair tone, good grimace and respiratory efforts on the materna l perineum during bulb suctioning. The cord was doubly clamped and the father of the baby a llowed to incise between the clamps. Approximately 16 inches of cord was left attached the baby for use with volume resuscitation (if needed) by the Intensive Care Unit staff . The remaining segment of cord was then carefully prepped 3 with Betadine wipes. A ster ile blood culture was drawn at the request of Intensive Care Unit staff. Add itional cord blood was obtained as usual. The placenta delivered approximately 15 minutes i nto the third stage. A three-vessel umbilical cord was centrally inserted up on the placent al disc. Membranes were intact and without particular clouding or malodorous change. Cotyl edons were abnormal with approximately 50 percent being flattened and pale and edematous in appearance, with remainder looking more typical. The cervix, vaginal sidewalls, perineum an d anus were intact at the completion of the procedure. Sponge, needle and instrument counts were correct at the completion of the procedure. Estimated blood loss was 250 mL. Mother tolerated the procedure well. The infant tolerated the procedure as expected for a 34 week fetus, and was transported to the Intensive Care Unit for further observation. Jake Urbano MD 05/19/2016 documented in this encounter Plan of Treatment Not on filedocumented as of this encounter Procedures + +--------+ + + + | Procedure Name | Priori | Date/Time | Associated Diagnosis | Comments | | | ty | | | | + +--------+ + + + | CBC NO DIFFERENTIAL | Routin | 05/20/2016 | | Results for this | | | e | 5:48 AM | | procedure are in the | | | | PST | | results section. | + +--------+ + + + | TISSUE REQUEST FOR | Routin | 05/20/2016 | | Results for this | | PATHOLOGY (NON-ORD) | e | 12:00 AM | | procedure are in the | | | | PST | | results section. | + +--------+ + + + | EXTERNAL LAB: CBC | Routin | 05/19/2016 | | Results for this | | | e | 6:31 AM | | procedure are in the | | | | PST | | results section. | + +--------+ + + + | HEPATITIS B SURFACE | Routin | 05/19/2016 | | Results for this | | AG | e | 6:31 AM | | procedure are in the | | | | PST | | results section. | + +--------+ + + + | TYPE AND SCREEN | Routin | 05/19/2016 | | Results for this | | | e | 6:31 AM | | procedure are in the | | | | PST | | results section. | + +--------+ + + + | STREP B SCREEN | Routin | 05/18/2016 | | Results for this | | | e | 9:38 PM | | procedure are in the | | | | PST | | results section. | + +--------+ + + + | STREP B DNA PROBE, | Routin | 05/18/2016 | | Results for this | | NAAT | e | 9:38 PM | | procedure are in the | | | | PST | | results section. | + +--------+ + + + | US BIOPHYSICAL | Routin | 05/16/2016 | | Results for this | | PROFILE WO NON | e | 10:43 AM | | procedure are in the | | STRESS | | PST | | results section. | + +--------+ + + + | US BIOPHYSICAL | Routin | 05/13/2016 | | Results for this | | PROFILE WO NON | e | 11:19 AM | | procedure are in the | | STRESS | | PST | | results section. | + +--------+ + + + | TYPE AND SCREEN | Routin | 05/12/2016 | | Results for this | | | e | 11:12 PM | | procedure are in the | | | | PST | | results section. | + +--------+ + + + | EXTERNAL LAB: CBC | Routin | 05/12/2016 | | Results for this | | | e | 11:11 PM | | procedure are in the | | | | PST | | results section. | + +--------+ + + + | GC/CHLAM APTIMA | Routin | 10/24/2015 | | Results for this | | | e | 12:00 AM | | procedure are in the | | | | PDT | | results section. | + +--------+ + + + | OBSTETRICS PANEL | Routin | 10/24/2015 | | Results for this | | | e | 12:00 AM | | procedure are in the | | | | PDT | | results section. | + +--------+ + + + documented in this encounter Results CBC no Differential (05/20/2016 5:48 AM PST) + + + + + + | Component | Value | Ref Range | Performed | Pathologist | | | | | At | Signature | + + + + + + | WBC | 15.74 (H)Comment: | 3.80 - 11.00 | EXTERNAL | | | | Testing performed at | K/uL | LAB | | | | [facility], [address] [facility] | | | | | | [place] | | | | | | [address] | | | | + + + + + + | Non- | 4.60Comment: Testing | 3.70 - 5.10 | EXTERNAL | | | Red Blood | performed at [facility], [address] | M/uL | LAB | | | Cells | [facility] [place], | | | | | Counted | [place] [address] | | | | + + + + + + | Hemoglobin | 10.1 (L)Comment: Testing | 11.3 - 15.5 | EXTERNAL | | | | performed at [facility], [address] | g/dL | LAB | | | | [address], | | | | | | [place] [address] | | | | + + + + + + | Hematocrit, | 32.0 (L)Comment: Testing | 34.0 - 46.0 % | EXTERNAL | | | POC | performed at [facility], [address] | | LAB | | | | [address], | | | | | | [place] [address] | | | | + + + + + + | MCV | 69.4 (L)Comment: Testing | 80.0 - 100.0 fl | EXTERNAL | | | | performed at [facility], [address] | | LAB | | | | [address], | | | | | | [place] [address] | | | | + + + + + + | MCH | 22.0 (L)Comment: Testing | 27.0 - 34.0 pg | EXTERNAL | | | | performed at [facility], [address] | | LAB | | | | [address], | | | | | | [place] [address] | | | | + + + + + + | MCHC | 31.7 (L)Comment: Testing | 32.0 - 35.5 | EXTERNAL | | | | performed at [facility], [address] | g/dL | LAB | | | | [address], | | | | | | [place] [address] | | | | + + + + + + | RDW-CV | 39.8Comment: Testing | 37 - 53 fl | EXTERNAL | | | | performed at [facility], [address] | | LAB | | | | [address], | | | | | | [place] [address] | | | | + + + + + + | Platelet | 390Comment: Testing | 150 - 400 K/uL | EXTERNAL | | | Count | performed at [facility], [address] | | LAB | | | Plasma | [address], | | | | | | [place] [address] | | | | + + + + + + | MPV | 8.4Comment: Testing | fl | EXTERNAL | | | | performed at [facility], [address] | | LAB | | | | [address], | | | | | | [place] [address] | | | | + + + + + + + + | Specimen | + + | | + + + +---------+ + + | Performing | Address | City/State/Zipcode | Phone Number | | Organization | | | | + +---------+ + + | EXTERNAL LAB | | | | + +---------+ + + Tissue Request For Pathology (05/20/2016 12:00 AM PST) + + | Specimen | + + | Soft tissue sample | | (specimen) | + + + + + | Narrative | Performed At | + + + | SPECIMEN(S): A PLACENTA - MICRO 3T SPECIMEN SOURCE: A. PLACENTA | EXTERNAL LAB | | - MICRO 3T CLINICAL HISTORY: 05/19/2016 at 1635 H. Mother's Age: | | | 28. OB History: . P: 2. A: 0 (spont/elect). Gestation | | | Age: 34 +0. 's Weight: 2725 grams. Score: 8/8. Rh: | | | A+ (Rhogam yes/no). Rubella: immune. RPR: negative. FINAL | | | PATHOLOGIC DIAGNOSIS: Placenta (426 grams), umbilical cord and | | | membranes: - Placental weight: approximately 70th percentile for | | | gestational age. - Chorionic villi with - appropriate | | | maturation for gestational age - no significant villous | | | infarction identified - no evidence of trophoblastic disease | | | -Three vessel umbilical cord with - decreased spiraling - | | | membranes with - mild acute chorioamnionitis - No | | | evidence of an infectious or inflammatory process. BES:rrc:C2NR | | | GROSS DESCRIPTION: One specimen is received in one container, labeled | | | with the patient's name: A. Received designated "placenta and | | | cord" consists of a 20.1 x 17.1 x 2.4 cm discoid placenta. The 20.6 x | | | 1.4 cm umbilical cord inserts 7.1 cm from the nearest placental | | | margin. Cut sections through the cord reveal three vessels. The | | | umbilical cord coiling index is 1 spirals per 10 cm. In accordance to | | | protocol, approximately 18.0 cm of umbilical cord is retained for | | | possible future studies. The placental membranes are translucent and | | | wrinkled with adherent blood clot. The surfaces are blue-purple | | | and shiny with the usual radiating vasculature. The maternal surface | | | is morales-brown and spongy with well-defined cotyledons appearing | | | intact. The trimmed placenta weighs 426 grams. Cut sections reveal a | | | bright pink placenta parenchyma. Basal plate fibrin is of normal | | | thickness. No areas of infarction are grossly identified. | | | Cassette summary: (A1) umbilical cord and membranes; (A2) placenta | | | parenchyma; (A3) placenta parenchyma. fam:[facility] MICROSCOPIC | | | EXAMINATION: Histologic sections of all submitted blocks are examined | | | by light microscopy. These findings, together with the gross | | | examination, support the pathologic diagnosis. PERFORMING LABORATORY: | | | Professional interpretation and technical preparation was performed | | | by [facility], [address], | | | [place] [address] (Clinical Appeals Specialist: Hilton Hutton M.D.; | | | [facility]#: [id number]). Diagnostician: Hilton Hutton MD Pathologist | | | Electronically Signed 05/24/2016 | | + + + + +---------+ + + | Performing | Address | City/State/Zipcode | Phone Number | | Organization | | | | + +---------+ + + | EXTERNAL LAB | | | | + +---------+ + + Type and Screen (05/19/2016 6:31 AM PST) + + + + + + | Component | Value | Ref Range | Performed | Pathologist | | | | | At | Signature | + + + + + + | ABO Rh | A POSITIVE | | EXTERNAL | | | | | | LAB | | + + + + + + | ABO Rh | Testing performed at | | EXTERNAL | | | | [facility] | | LAB | | | | [address];[place] [address] | | | | + + + + + + | Antibody | NEGATIVE | | EXTERNAL | | | Screen | | | LAB | | + + + + + + | Antibody | Testing performed at | | EXTERNAL | | | Screen | [facility] | | LAB | | | | Bl[address];[place] [address] | | | | + + + + + + | BB BAND | [id number] | | EXTERNAL | | | | | | LAB | | + + + + + + | BB BAND | Testing performed at | | EXTERNAL | | | | [facility] | | LAB | | | | [address];[place] [address] | | | | + + + + + + + + | Specimen | + + | Blood specimen | | (specimen) | + + + +---------+ + + | Performing | Address | City/State/Zipcode | Phone Number | | Organization | | | | + +---------+ + + | EXTERNAL LAB | | | | + +---------+ + + Hepatitis B Surface Ag (05/19/2016 6:31 AM PST) + + + + + + | Component | Value | Ref Range | Performed | Pathologist | | | | | At | Signature | + + + + + + | HEP B | NON REACTIVEComment: | | EXTERNAL | | | SURFACE | Testing performed at | | LAB | | | ANTIBODY | [facility], [address] | | | | | | [place], [place], [place] | | | | | | [address] | | | | + + + + + + + + | Specimen | + + | Blood specimen | | (specimen) | + + + +---------+ + + | Performing | Address | City/State/Zipcode | Phone Number | | Organization | | | | + +---------+ + + | EXTERNAL LAB | | | | + +---------+ + + External Lab: CBC (05/19/2016 6:31 AM PST) + + + + + + | Component | Value | Ref Range | Performed | Pathologist | | | | | At | Signature | + + + + + + | WBC | 16.14 (H)Comment: | 3.80 - 11.00 | EXTERNAL | | | | Testing performed at | K/uL | LAB | | | | [facility];[address] | | | | | | [address];[place] [address] | | | | + + + + + + | Non- | 4.90Comment: Testing | 3.70 - 5.10 | EXTERNAL | | | Red Blood | performed at [facility];[address] | M/uL | LAB | | | Cells | [address];[place] | | | | | Counted | [address] | | | | + + + + + + | Hemoglobin | 10.9 (L)Comment: Testing | 11.3 - 15.5 | EXTERNAL | | | | performed at [facility];888 | g/dL | LAB | | | | [address];[place] | | | | | | [address] | | | | + + + + + + | Hematocrit, | 34.5Comment: Testing | 34.0 - 46.0 % | EXTERNAL | | | POC | performed at [facility];[address] | | LAB | | | | [address];[place] | | | | | | [address] | | | | + + + + + + | MCV | 70.3 (L)Comment: Testing | 80.0 - 100.0 fl | EXTERNAL | | | | performed at [facility];[address] | | LAB | | | | [address];[place] | | | | | | [address] | | | | + + + + + + | MCH | 22.1 (L)Comment: Testing | 27.0 - 34.0 pg | EXTERNAL | | | | performed at [facility];[address] | | LAB | | | | [address];[place] | | | | | | [address] | | | | + + + + + + | MCHC | 31.5 (L)Comment: Testing | 32.0 - 35.5 | EXTERNAL | | | | performed at [facility];[address] | g/dL | LAB | | | | [address];[place] | | | | | | [address] | | | | + + + + + + | RDW-CV | 41.1Comment: Testing | 37 - 53 fl | EXTERNAL | | | | performed at [facility];[address] | | LAB | | | | [address];[place] | | | | | | [address] | | | | + + + + + + | Platelet | 400Comment: Testing | 150 - 400 K/uL | EXTERNAL | | | Count | performed at [facility];[address] | | LAB | | | Plasma | [address];[place] | | | | | | [address] | | | | + + + + + + | MPV | 8.0Comment: Testing | fl | EXTERNAL | | | | performed at [facility];[address] | | LAB | | | | [address];[place] | | | | | | [address] | | | | + + + + + + | Platelet | ADEQUATEComment: Testing | | EXTERNAL | | | Estimate | performed at [facility];[address] | | LAB | | | | [address];[place] | | | | | | [address] | | | | + + + + + + | RBC | NORMAL PLT MORPHComment: | | EXTERNAL | | | Morphology | 1+HYPO1+MICROTesting | | LAB | | | | performed at [facility];[address] | | | | | | [address];[place] | | | | | | [address] | | | | | |MICRO | | | | | |Testing performed at [facility];[address];[place] [address] | | | | | | | | | | + + + + + + | Differentia | MANUALComment: Testing | | EXTERNAL | | | l Type | performed at [facility];[address] | | LAB | | | | [address];[place] | | | | | | [address] | | | | + + + + + + | Segmented | 81Comment: Testing | % | EXTERNAL | | | Neutrophils | performed at [facility];[address] | | LAB | | | Manual | [address];[place] | | | | | | [address] | | | | + + + + + + | Lymphocytes | 17Comment: Testing | % | EXTERNAL | | | Manual | performed at [facility];[address] | | LAB | | | | [address];[place] | | | | | | [address] | | | | + + + + + + | Monocytes | 2Comment: Testing | % | EXTERNAL | | | Manual | performed at [facility];[address] | | LAB | | | | [address];[place] | | | | | | [address] | | | | + + + + + + | Absolute | 13.08 (H)Comment: | 1.90 - 7.40 | EXTERNAL | | | Neutrophils | Testing performed at | K/uL | LAB | | | | [facility];[address] [place] [address] | | | | | | [address];[place] [address] | | | | + + + + + + | Absolute | 2.74Comment: Testing | 1.00 - 3.90 | EXTERNAL | | | Lymphocytes | performed at [facility];[address] | K/uL | LAB | | | | [address];[place] | | | | | | [address] | | | | + + + + + + | Absolute | 0.32Comment: Testing | 0.00 - 0.80 | EXTERNAL | | | Monocytes | performed at [facility];[address] | K/uL | LAB | | | | [address];[place], [place] | | | | | | [address] | | | | + + + + + + + + | Specimen | + + | Blood specimen | | (specimen) | + + + +---------+ + + | Performing | Address | City/State/Zipcode | Phone Number | | Organization | | | | + +---------+ + + | EXTERNAL LAB | | | | + +---------+ + + Strep B screen (05/18/2016 9:38 PM PST) + + | Specimen | + + | | + + + + + | Narrative | Performed At | + + + | Specimen Description VAGINAL/RECTAL SWAB | EXTERNAL LAB | | CULTURE NO GROUP B STREP | | | ISOLATED | | + + + + +---------+ + + | Performing | Address | City/State/Zipcode | Phone Number | | Organization | | | | + +---------+ + + | EXTERNAL LAB | | | | + +---------+ + + Strep B DNA probe, NAAT (05/18/2016 9:38 PM PST) + + + + + + | Component | Value | Ref Range | Performed | Pathologist | | | | | At | Signature | + + + + + + | Group B | NEGATIVE for GBS | | EXTERNAL | | | Strep | colonization by | | LAB | | | | PCRComment: Testing | | | | | | performed at [facility] | | | | | | [facility];[place], [place] | | | | | | [address] | | | | + + + + + + + + | Specimen | + + | Soft tissue sample | | (specimen) | + + + +---------+ + + | Performing | Address | City/State/Zipcode | Phone Number | | Organization | | | | + +---------+ + + | EXTERNAL LAB | | | | + +---------+ + + US BPP wo Non Stress (05/16/2016 10:43 AM PST) + + | Specimen | + + | | + + + + + | Impressions | Performed At | + + + | 1. Biophysical Profile Score = 6/8 | | + + + + + + | Narrative | Performed At | + + + | DAYANNA MITCHELL 1985 BPP WO NON STRESS TESTING | | | 05/16/2016 10:43 AM HISTORY: premature rupture of membranes, | | | follow-up COMPARISON: 05/13/2016 TECHNIQUE: Imaging was | | | performed using a curved array transabdominal transducer. Grayscale, | | | color flow and M-mode techniques were utilized. FINDINGS: The | | | position: Cephalic. Placental position: Anterior. Amniotic | | | fluid index: 6.2 cm. The largest single pocket of amniotic fluid | | | measures 3.1 cm. BIOPHYSICAL PROFILE: Movement = 2 Tone = 2 | | | Breathing = 0 AFV = 2 Biophysical Profile Score = 6/8 | | | heart rate = 154 beats/min | | + + + + + | Procedure Note | + + | Delio, Rad Conversion - 11/23/2018 4:27 AM PDT [facility]ANNA [facility]N1985[facility] WO | | NON STRESS TESTING05/16/2016 10:43 AM HISTORY: premature rupture of membranes, | | follow-up COMPARISON: 05/13/2016 TECHNIQUE: Imaging was performed using a curved array | | transabdominal transducer. Grayscale, color flow and M-mode techniques were utilized. | | FINDINGS:The position: Cephalic.Placental position: Anterior. Amniotic fluid | | index: 6.2 cm.The largest single pocket of amniotic fluid measures 3.1 cm. BIOPHYSICAL | | PROFILE:Movement = 2Tone = 2Breathing = 0AFV = 2Biophysical Profile Score = 6/8 | | heart rate = 154 beats/min IMPRESSION: 1. Biophysical Profile Score = 6/8 | | | |TECHNIQUE: Imaging was performed using a curved array transabdominal transducer. Grayscale , color flow and M-mode techniques were utilized. | | | |FINDINGS: | |The position: Cephalic. | |Placental position: Anterior. | | | |Amniotic fluid index: 6.2 cm. | |The largest single pocket of amniotic fluid measures 3.1 cm. | | | |BIOPHYSICAL PROFILE: | |Movement = 2 | |Tone = 2 | |Breathing = 0 | |AFV = 2 | |Biophysical Profile Score = 6/8 | | | | heart rate = 154 beats/min | | | |IMPRESSION: | |1. Biophysical Profile Score = 6/8 | | | | | + + US BPP wo Non Stress (05/13/2016 11:19 AM PST) + + | Specimen | + + | | + + + + + | Impressions | Performed At | + + + | 1. The biophysical profile score is 8/8. Electronically | | | signed by Tylor Hanna MD on 05/13/2016 11:24 AM | | + + + + + + | Narrative | Performed At | + + + | DAYANNA MITCHELL BPP WO NON STRESS TESTING 05/13/2016 11:19 AM | | | History: 30 years. Female. premature rupture of | | | membranes. Technique: A pulse Doppler duplex transducer with color | | | mapping was utilized, with morales scale and doppler each recording in | | | multiple anatomic planes. Transabdominal ultrasound only was | | | performed. Comparison: Ultrasound examination to [facility]. | | | Findings: Single live intrauterine . heart rate 1 65 | | | bpm. movements are visualized. Cephalic presentation with spine | | | to the maternal right. Placenta is anterior. Gross body | | | movement: 2 Tone: 2 Breathin Qualitative AFV: 2 | | | The amniotic fluid index is 10.8 cm, previously 18 cm. The largest | | | amniotic fluid pocket measures 3.7 cm. | | + + + + + | Procedure Note | + + | Delio, Rad Conversion - 11/23/2018 4:27 AM PDT [facility]ANNA [facility] WO NON STRESS | | TESTING05/13/2016 11:19 AM History: 30 years. Female. premature rupture of | | membranes. Technique: A pulse Doppler duplex transducer with color mapping was utilized, | | with morales scale and doppler each recording in multiple anatomic planes. Transabdominal | | ultrasound only was performed. Comparison: Ultrasound examination to 117. Findings: | | Single live intrauterine . heart rate 1 65 bpm. movements are | | visualized. Cephalic presentation with spine to the maternal right. Placenta is | | anterior. Gross body movement: 2Fetal Tone: 2Fetal BreathinQualitative AFV: 2 | | The amniotic fluid index is 10.8 cm, previously 18 cm.The largest amniotic fluid pocket | | measures 3.7 cm. IMPRESSION: 1. The biophysical profile score is 8/8. | | | | | |Gross body movement: 2 | | Tone: 2 | | Breathin | |Qualitative AFV: 2 | | | |The amniotic fluid index is 10.8 cm, previously 18 cm. | |The largest amniotic fluid pocket measures 3.7 cm. | | | |IMPRESSION: | |1. The biophysical profile score is 8/8. | | | | | + + Type and Screen (05/12/2016 11:12 PM PST) + + + + + + | Component | Value | Ref Range | Performed | Pathologist | | | | | At | Signature | + + + + + + | ABO Rh | A POSITIVE | | EXTERNAL | | | | | | LAB | | + + + + + + | ABO Rh | Testing performed at | | EXTERNAL | | | | [facility] | | LAB | | | | [address]vd;[place] [address] | | | | + + + + + + | Antibody | NEGATIVE | | EXTERNAL | | | Screen | | | LAB | | + + + + + + | Antibody | Testing performed at | | EXTERNAL | | | Screen | [facility] | | LAB | | | | [address]vd;[place] [address] | | | | + + + + + + | BB BAND | [id number] | | EXTERNAL | | | | | | LAB | | + + + + + + | BB BAND | Testing performed at | | EXTERNAL | | | | [facility];[address] [facility] | | LAB | | | | [address];[place] [address] | | | | + + + + + + + + | Specimen | + + | Blood specimen | | (specimen) | + + + +---------+ + + | Performing | Address | City/State/Zipcode | Phone Number | | Organization | | | | + +---------+ + + | EXTERNAL LAB | | | | + +---------+ + + External Lab: CBC (05/12/2016 11:11 PM PST) + + + + + + | Component | Value | Ref Range | Performed | Pathologist | | | | | At | Signature | + + + + + + | WBC | 11.81 (H)Comment: | 3.80 - 11.00 | EXTERNAL | | | | Testing performed at | K/uL | LAB | | | | [facility];[address] | | | | | | [address];[place] [address] | | | | + + + + + + | Non- | 4.32Comment: Testing | 3.70 - 5.10 | EXTERNAL | | | Red Blood | performed at [facility];[address] | M/uL | LAB | | | Cells | [address];[place] | | | | | Counted | [address] | | | | + + + + + + | Hemoglobin | 9.9 (L)Comment: Testing | 11.3 - 15.5 | EXTERNAL | | | | performed at [facility];[address] | g/dL | LAB | | | | [address];[place] | | | | | | [address] | | | | + + + + + + | Hematocrit, | 30.9 (L)Comment: Testing | 34.0 - 46.0 % | EXTERNAL | | | POC | performed at [facility];[address] | | LAB | | | | [address];[place] | | | | | | [address] | | | | + + + + + + | MCV | 71.5 (L)Comment: Testing | 80.0 - 100.0 fl | EXTERNAL | | | | performed at [facility];[address] | | LAB | | | | [address];[place] | | | | | | [address] | | | | + + + + + + | MCH | 23.0 (L)Comment: Testing | 27.0 - 34.0 pg | EXTERNAL | | | | performed at [facility];[address] | | LAB | | | | [address];[place] | | | | | | [address] | | | | + + + + + + | MCHC | 32.2Comment: Testing | 32.0 - 35.5 | EXTERNAL | | | | performed at [facility];[address] | g/dL | LAB | | | | [address];[place] | | | | | | [address] | | | | + + + + + + | RDW-CV | 40.7Comment: Testing | 37 - 53 fl | EXTERNAL | | | | performed at [facility];[address] | | LAB | | | | [address];[place] | | | | | | [address] | | | | + + + + + + | Platelet | 337Comment: Testing | 150 - 400 K/uL | EXTERNAL | | | Count | performed at [facility];[address] | | LAB | | | Plasma | [address];[place] | | | | | | [address] | | | | + + + + + + | MPV | 7.8Comment: Testing | fl | EXTERNAL | | | | performed at [facility];[address] | | LAB | | | | [address];[place] | | | | | | [address] | | | | + + + + + + | Differentia | AUTOMATEDComment: | | EXTERNAL | | | l Type | Testing performed at | | LAB | | | | [facility];[address] | | | | | | [address];[place] [address] | | | | + + + + + + | % Segmented | 85.67Comment: Testing | % | EXTERNAL | | | | performed at [facility];[address] | | LAB | | | Neutrophils | [address];[place] | | | | | | [address] | | | | + + + + + + | % | 11.36Comment: Testing | % | EXTERNAL | | | Lymphocytes | performed at [facility];[address] | | LAB | | | | [address];[place] | | | | | | [address] | | | | + + + + + + | % Monocytes | 2.81Comment: Testing | % | EXTERNAL | | | | performed at [facility];[address] | | LAB | | | | [address];[place] | | | | | | [address] | | | | + + + + + + | % | 0.03Comment: Testing | % | EXTERNAL | | | Eosinophils | performed at [facility];[address] | | LAB | | | | [address];[place] | | | | | | [address] | | | | + + + + + + | % Basophils | 0.13Comment: Testing | % | EXTERNAL | | | | performed at [facility];[address] | | LAB | | | | [address];[place] | | | | | | [address] | | | | + + + + + + | Absolute | 10.12 (H)Comment: | 1.90 - 7.40 | EXTERNAL | | | Segmented | Testing performed at | K/uL | LAB | | | Neutrophils | [facility];[address] | | | | | | [address];[place] [address] | | | | + + + + + + | Absolute | 1.34Comment: Testing | 1.00 - 3.90 | EXTERNAL | | | Lymphocytes | performed at [facility];[address] | K/uL | LAB | | | | [address];[place] | | | | | | [address] | | | | + + + + + + | Absolute | 0.33Comment: Testing | 0.00 - 0.80 | EXTERNAL | | | Monocytes | performed at [facility];[address] | K/uL | LAB | | | | [address];[place] | | | | | | [address] | | | | + + + + + + | Absolute | 0.00Comment: Testing | 0.00 - 0.50 | EXTERNAL | | | Eosinophils | performed at [facility];[address] | K/uL | LAB | | | | [address];[place] | | | | | | [address] | | | | + + + + + + | Absolute | 0.02Comment: Testing | 0.00 - 0.10 | EXTERNAL | | | Basophils | performed at [facility];[address] | K/uL | LAB | | | | [address];[place] | | | | | | [address] | | | | + + + + + + | RBC | NORMAL PLT MORPHComment: | | EXTERNAL | | | Morphology | 1+MICRO1+HYPOTesting | | LAB | | | | performed at [facility];[address] | | | | | | [address];[place] | | | | | | [address] | | | | | |HYPO | | | | | |Testing performed at [facility];[address];[place] [address] | | | | | | | | | | + + + + + + | Platelet | ADEQUATEComment: Testing | | EXTERNAL | | | Estimate | performed at [facility];[address] | | LAB | | | | [address];[place] | | | | | | [address] | | | | + + + + + + | Differentia | SLIDE SCANNED, AGREES | | EXTERNAL | | | l Comments | WITH AUTOMATED | | LAB | | | | RESULTS.Comment: Testing | | | | | | performed at [facility];[address] | | | | | | [address];[place] | | | | | | [address] | | | | + + + + + + + + | Specimen | + + | Blood specimen | | (specimen) | + + + +---------+ + + | Performing | Address | City/State/Zipcode | Phone Number | | Organization | | | | + +---------+ + + | EXTERNAL LAB | | | | + +---------+ + + GC/Chlam Aptima (10/24/2015 12:00 AM PDT) + + + + + + | Component | Value | Ref Range | Performed | Pathologist | | | | | At | Signature | + + + + + + | Result | negative | | EXTERNAL | | | | | | LAB | | + + + + + + | Chlamydia | negative | | EXTERNAL | | | Trachomatis | | | LAB | | | [place] | | | | | + + + + + + + + | Specimen | + + | | + + + +---------+ + + | Performing | Address | City/State/Zipcode | Phone Number | | Organization | | | | + +---------+ + + | EXTERNAL LAB | | | | + +---------+ + + Obstetrics Panel (10/24/2015 12:00 AM PDT) + + + + + + | Component | Value | Ref Range | Performed | Pathologist | | | | | At | Signature | + + + + + + | RUBEOLA IGG | immune | | EXTERNAL | | | (REF) | | | LAB | | + + + + + + | Treponema | negative | | EXTERNAL | | | Pallidum Ab | | | LAB | | | Total | | | | | + + + + + + | ABORH | A positive | | EXTERNAL | | | EXTERNAL | | | LAB | | + + + + + + | Antibody | negative | | EXTERNAL | | | Screen | | | LAB | | + + + + + + + + | Specimen | + + | Blood specimen | | (specimen) | + + + +---------+ + + | Performing | Address | City/State/Zipcode | Phone Number | | Organization | | | | + +---------+ + + | EXTERNAL LAB | | | | + +---------+ + + documented in this encounter Visit Diagnoses + + | Diagnosis | + + | premature rupture of membranes in third trimester, unspecified duration to | | onset of labor | + + | Maternal arthritis Bone and joint disorders of maternal back, pelvis, and lower | | limbs, complicating , childbirth, or the puerperium, unspecified as to episode | | of care | + + | Morbid obesity with BMI of 40.0-44.9, adult ([facility]) | + + documented in this encounter
[~2019-12-18 14:38] MED LIST changes: +CEFTRIAXONE2 G1 IV; +CIMZIA400 MG SUB-Q; +FLUTICASONE PRO16 GM NAS; +SUDOGEST PE10 MG PO
== END 2019-12-18 18:22 | disposition home or self-care (01) ==
LOC: ED 14:38
DX: S20.212A Contusion of left front wall of thorax, initial encounter (principal); Z87.891 Personal history of nicotine dependence; Z88.8 Allergy status to other drugs, medicaments and biological substances; Z79.899 Other long term (current) drug therapy; W01.0XXA Fall on same level from slipping, tripping and stumbling without subsequent striking against object, initial encounter
CPT/HCPCS: 71101; 99285-25; A9270

== ENCOUNTER 2021-03-30 09:37 | Emergency (ER) | payer BC, OTHER ==
[~2021-03-30] VITALS: Ht 157.5 cm; Wt 100.8 kg
--- OUTSIDE RECORDS SUMMARY | 2021-03-30 09:46 | XMS ---
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 \T\middot;\T\nbsp; PLEASE REFER PATIENT TO [facility] FOR NON EMERGENT MEDICAL NEEDS. \T\middot;\ T\nbsp; [facility] CAN SEE PATIENTS SAME DAY FOR APTS IF PATIENT CALLS FIRST THING IN THE MORNING. E.D. VISIT COUNT (12 MO.) [address] [place] [address] TOTAL 1 NOTE: Visits indicate total known visits. ED/UCC VISIT TRACKING (12 MO.) 03/30/2021 09:38 [facility] [place] TYPE: Emergency COMPLAINT: - DIFFICULTY BREATHING, COUGH W/MUCUS INPATIENT VISIT TRACKING (12 MO.) 09/24/2020 09:26 [facility]ORGENSEN TYPE: Womens Services COMPLAINT: - Inpt Induction Anomalies DIAGNOSES: - Inpt Induction Anomalies [email or web address]
[2021-03-30] MEDS ORDERED: VENTOLIN HFA18 GM INH (11:55)
[2021-03-30] MEDS ORDERED: PREDNISONE20 MG PO (11:55)
== END 2021-03-30 12:39 | disposition home or self-care (01) ==
LOC: ED 09:37
DX: J45.901 Unspecified asthma with (acute) exacerbation (principal); J06.9 Acute upper respiratory infection, unspecified; Z87.891 Personal history of nicotine dependence; Z88.8 Allergy status to other drugs, medicaments and biological substances; Z20.822 Contact with and (suspected) exposure to COVID-19
CPT/HCPCS: 71045; 94640; 99285-25; C9803; J7512; U0003

== ENCOUNTER 2023-09-02 14:09 | Emergency (ER) | payer BC, OTHER ==
[~2023-09-02] VITALS: Ht 157.5 cm; Wt 101.9 kg
[~2023-09-02 14:09] MED LIST changes: +CIMZIA400 MG/2 M SUB-Q; +PREDNISONE20 MG PO; +VENTOLIN HFA18 GM INH
[2023-09-02] MEDS ORDERED: ALBUTEROL/IPRATROPIUM 3 ML NEB INH ONE (16:45)
[2023-09-02] MEDS ORDERED: predniSONE 20 MG TAB PO ONE (16:45)
[2023-09-02] MEDS ORDERED: ACETAMINOPHEN 500 MG TAB PO ONE (16:45)
[2023-09-02] MEDS ORDERED: PREDNISONE20 MG PO (17:11)
[2023-09-02 17:45] VITALS: BP 163/76
== END 2023-09-02 17:51 | disposition home or self-care (01) ==
LOC: ED 14:09
DX: J45.901 Unspecified asthma with (acute) exacerbation (principal); M06.9 Rheumatoid arthritis, unspecified; Z87.891 Personal history of nicotine dependence; Z88.8 Allergy status to other drugs, medicaments and biological substances; Z79.899 Other long term (current) drug therapy
CPT/HCPCS: 94640; 99284-25; A9270; J7512

== ENCOUNTER 2024-02-11 17:59 | Observation (INO) | payer BC, OTHER ==
[~2024-02-11] VITALS: Ht 157.5 cm; Wt 102.6 kg
[~2024-02-11 17:59] MED LIST changes: +FISH OIL 1,0001 EAC6 PO; +FOLIC ACID0.4 MG PO; +PRENATA CHEWAB1 EACH PO
[2024-02-11] MEDS ORDERED: NEOMYCIN/POLYMYXIN/HYDROCORT 10 ML HOME.PACK OTIC ONE (20:00)
[2024-02-11 20:03] LABS: BILIRUBIN, URINE NEGATIVE (negative); BLOOD/HGB, URINE TRACE-I (Negative); KETONE, URINE NEGATIVE (Negative); LEUK ESTERASE, URINE NEGATIVE (negative); NITRITE, URINE NEGATIVE (negative)
[2024-02-11 20:11] LABS: CREATININE, RANDOM URINE 104.03 mg/dL (NOT ESTABLISHED); PROTEIN/CREATININE RATIO 0.67 mg/mg (0.010-0.107)
[2024-02-11 20:12] LABS: BACTERIA, URINE 1+ /hpf (negative); CASTS, URINE NONE SEEN \\lpf; COLLECTION TYPE, URINE CLEAN CATCH; CRYSTALS, URINE NONE SEEN (0-1+); EPITHELIAL CELLS, URINE SQUAMOUS 3+ /lpf (0-1+); REFLEX CULTURE, URINE No (No); WHITE BLOOD CELLS, URINE 0-1 /HPF (0-5)
[2024-02-11 20:23] LABS: BASOPHILS 0.3 % (0-2); HEMATOCRIT 33.5 % (35.0-50.0); HEMOGLOBIN 11.1 g/dL (12.0-18.0); LYMPHOCYTES 16.9 % (24-44); MCH 26.2 (27-36); MCHC 33.1 g/dl (30-36); MONOCYTES 5.1 % (0-12); NEUTROPHILS 76.7 % (39-80); PLATELET COUNT 404 K/uL (140-440); RBC 4.24 M/ul (4.3-5.7); RDW 13.3 (10.5-15.0)
[2024-02-11 20:38] LABS: ALBUMIN 2.2 g/dL (3.4-5.0); ALBUMIN/GLOBULIN RATIO 0.42 (1.1-2.4); BILIRUBIN, TOTAL 0.5 ng/dL (0.2-1.0); BUN/CREATININE RATIO 15.38 (6.0-28.6); CALCIUM 8.4 mg/dL (8.5-10.1); CREATININE, SERUM 0.52 mg/dL (0.55-1.02); PROTEIN, TOTAL 7.5 g/dL (6.4-8.2)
[2024-02-11] MEDS ORDERED: AMOXICILLIN500 M1 PO (21:26)
[2024-02-11] MEDS ORDERED: AMOXICILLIN 500 MG HOME.PACK PO ONE (21:30)
[2024-02-11 21:42] VITALS: BP 135/76
[2024-02-12 05:30] LABS: HEMATOCRIT 32.1 % (35.0-50.0); HEMOGLOBIN 10.4 g/dL (12.0-18.0); MCH 25.7 (27-36); MCHC 32.5 g/dl (30-36); RBC 4.06 M/ul (4.3-5.7); RDW 13.3 (10.5-15.0)
[2024-02-12 05:47] LABS: CREATININE, SERUM 0.48 mg/dL (0.55-1.02)
[2024-02-12 09:20] LABS: CREATININE, RANDOM URINE 101.55 mg/dL (NOT ESTABLISHED); PROTEIN/CREATININE RATIO 0.44 mg/mg (0.010-0.107)
[2024-02-12] MEDS ORDERED: LACTATED RINGER'S 1,000 ML IV ONE (10:45)
== END 2024-02-12 11:10 | disposition home or self-care (01) ==
LOC: ED 17:59 → FBC 21:49
PROVIDERS: Family Medicine; ADMIT Obstetrics & Gynecology; ATTEND Obstetrics & Gynecology
DX: O99.513 Diseases of the respiratory system complicating pregnancy, third trimester (principal); J02.0 Streptococcal pharyngitis; O99.891 Other specified diseases and conditions complicating pregnancy; H60.92 Unspecified otitis externa, left ear; O14.93 Unspecified pre-eclampsia, third trimester; O24.913 Unspecified diabetes mellitus in pregnancy, third trimester; Z3A.28 28 weeks gestation of pregnancy; Z87.891 Personal history of nicotine dependence; Z88.8 Allergy status to other drugs, medicaments and biological substances
CPT/HCPCS: 36415; 80053; 81001; 82565; 82570; 84156; 84450; 84520; 84550; 85025; 85027; 87651; 99283; G0378; J7121

== ENCOUNTER 2024-04-16 14:29 | Inpatient (IN) | payer BC, OTHER ==
[~2024-04-16] VITALS: Ht 160 cm; Wt 106.1 kg
[~2024-04-16 14:29] MED LIST changes: +AMOXICILLIN500 M1 PO
[2024-04-16] MEDS ORDERED: CALCIUM GLUCONATE 1,000 MG/10 ML VIAL ONE (15:24)
[2024-04-16] MEDS ORDERED: MAGNESIUM SULFATE 500 ML IV ONE (15:24)
[2024-04-16] MEDS ORDERED: LABETALOL HCL 100 MG/20 ML MDV ONE (15:24)
[2024-04-16] MEDS ORDERED: LABETALOL HCL 100 MG/20 ML MDV IV PRN ×3 (16:00)
[2024-04-16] MEDS ORDERED: LACTATED RINGER'S 1,000 ML IV PRN (16:15)
[2024-04-16] MEDS ORDERED: MAGNESIUM SULFATE 500 ML IV SCH ×2 (16:15→23:30)
[2024-04-16] MEDS ORDERED: LACTATED RINGER'S 1,000 ML IV SCH ×3 (16:15→23:30)
[2024-04-16] MEDS ORDERED: SOD+POT BICARB/CITRIC ACID 2 EA TABLET.EFF PO ONE (16:15)
[2024-04-16] MEDS ORDERED: CALCIUM GLUCONATE 1,000 MG/10 ML VIAL IV PRN ×2 (16:15→23:30)
[2024-04-16 16:23] LABS: HEMATOCRIT 35.2 % (35.0-50.0); HEMOGLOBIN 11.8 g/dL (12.0-18.0); MCH 24.9 (27-36); MCHC 33.5 g/dl (30-36); MCV 74.5 fl (81-99); RBC 4.73 M/ul (4.3-5.7); RDW 15.4 (10.5-15.0)
[2024-04-16 16:30] VITALS: BP 141/73
[2024-04-16 16:32] LABS: ALBUMIN 1.8 g/dL (3.4-5.0); ALBUMIN/GLOBULIN RATIO 0.34 (1.1-2.4); ANION GAP 12.2 (7-21); BILIRUBIN, TOTAL 0.4 ng/dL (0.2-1.0); BUN/CREATININE RATIO 13.41 (6.0-28.6); CALCIUM 8.4 mg/dL (8.5-10.1); CREATININE, SERUM 0.82 mg/dL (0.55-1.02); POTASSIUM 4.2 mmol/L (3.5-5.1); PROTEIN, TOTAL 7.1 g/dL (6.4-8.2)
[2024-04-16 16:47] LABS: ABO A; RH POSITIVE
[2024-04-16 16:48] LABS: ANTIBODY SCREEN NEGATIVE
[2024-04-16 17:24] LABS: AMPHETAMINES, URINE NEGATIVE (NEGATIVE); BARBITURATES, URINE NEGATIVE (NEGATIVE); BENZODIAZEPINE, URINE NEGATIVE (NEGATIVE); BUPRENORPHINE, URINE NEGATIVE (NEGATIVE); CANNABINOID, URINE NEGATIVE (NEGATIVE); COCAINE, URINE NEGATIVE (NEGATIVE); ECSTASY, URINE NEGATIVE (NEGATIVE); FENTANYL, URINE NEGATIVE (NEGATIVE); METHADONE, URINE NEGATIVE (NEGATIVE); OPIATES, URINE NEGATIVE (NEGATIVE); OXYCODONE, URINE NEGATIVE (NEGATIVE); PHENCYCLIDINE, URINE NEGATIVE (NEGATIVE)
[2024-04-16 17:27] LABS: CREATININE, RANDOM URINE 151.04 mg/dL (NOT ESTABLISHED); PROTEIN/CREATININE RATIO 0.56 mg/mg (0.010-0.107)
[2024-04-16] MEDS ORDERED: LABETALOL HCL 100 MG/20 ML MDV IV ONE (17:30)
--- NOTE | 2024-04-16 18:35 | PR ---
[facility] [address] [place], [place] [address] Signed Progress Notes IP Datetime Report Generated by CPN: 04/16/2024 18:35 PROGRESS NOTES: [id number] Impression: Reassuring Heart Rate Plan: Deliver- Section Informed Consent Obtain: Section Delivery; Risks, Benefits and Alternatives Discussed Other Informed Consents: Reviewed risk of transfer if needed VITAL SIGNS: [id number] Vital Signs: Reviewed VS Notable Details: Sustained severely elevated BPs EXAM: [id number] Effacement: 20 Station: -3 Contractions: rare MEMBRANES: [id number] Comments: Pt seen and examined. Doing well on Magnesium. No EDGAR, RUQ pain, or visual changes. Reviewed C/S and consents completed. All questions answered. FETUS A: [id number] FHR Baseline: 150 Variability: Moderate 6-25bpm Accelerations: 15X15 Decelerations: None FHR Category: Category I Presentation: Vertex Comments on Fetus A: No evidence of metabolic acidosis FETUS B: [id number] Signing Physician: Radha Acuna DO Copies: ~ *Electronically Signed* 04/16/24 1835 RADHA ACUNA (PEYMAN) DO PATIENT NAME: CORTEZ BERNSTEIN PROGRESS NOTE DATE OF : 89 PHYSICIAN: RADHA ACUNA) DO RPT #: [id number] REPORT IS CONFIDENTIAL AND NOT TO BE RELEASED WITHOUT AUTHORIZATION
[2024-04-16] MEDS ORDERED: BUPIVACAINE 0.75% IN DEXTROSE 2 ML AMP ONE (18:54)
[2024-04-16] MEDS ORDERED: ondansetron HCL 4 MG/2 ML VIAL ONE (18:55)
[2024-04-16] MEDS ORDERED: PHENYLEPHRINE HCL 10 MG/ML VIAL ONE (18:55)
[2024-04-16] MEDS ORDERED: SODIUM CHLORIDE 0.9% 20 ML IV ONE ×2 (18:55→21:52)
[2024-04-16] MEDS ORDERED: LIDOCAINE HCL 2% 5 ML SDV ONE (18:55)
[2024-04-16] MEDS ORDERED: DEXAMETHASONE SOD PHOS 4 MG/ML VIAL ONE ×2 (18:55→21:52)
[2024-04-16] MEDS ORDERED: OXYTOCIN 10 UNITS/ML VIAL ONE (18:58)
[2024-04-16] MEDS ORDERED: CEFAZOLIN SODIUM 3 GM/30 ML SYR IV SCH (19:00)
[2024-04-16] MEDS ORDERED: MORPHINE SULFATE 1 MG/ML VIAL ONE (19:11)
[2024-04-16] MEDS ORDERED: fentaNYL citrate 100 MCG/2 ML VIAL ONE (19:11)
[2024-04-16] MEDS ORDERED: Ropivacaine HCl 0.5% 30 ML VIAL ONE (21:52)
[2024-04-16] MEDS ORDERED: dexmedeTOMIDine HCl 200 MCG/2 ML VIAL ONE (21:52)
[2024-04-16] MEDS ORDERED: diphenhydrAMINE HCL 50 MG/ML VIAL IV PRN (22:15)
[2024-04-16] MEDS ORDERED: KETOROLAC TROMETHAMINE 30 MG/ML VIAL IV PRN ×2 (22:15→22:30)
[2024-04-16] MEDS ORDERED: NALOXONE HCL 0.4 MG SYR IV PRN ×2 (22:15→22:30)
[2024-04-16] MEDS ORDERED: ondansetron HCL 4 MG/2 ML VIAL IV PRN ×3 (22:15→23:30)
[2024-04-16] MEDS ORDERED: HYDROmorphone HCL 1 MG/ML SYR IV PRN (22:15)
[2024-04-16] MEDS ORDERED: fentaNYL citrate 50 MCG/ML SDV IV PRN (22:30)
[2024-04-16] MEDS ORDERED: IBLOOD GLUCOSE TEST STRIP 1 EA TEST VI PRN (22:30)
[2024-04-16] MEDS ORDERED: OXYCODONE HCL 5 MG TAB PO PRN (23:30)
[2024-04-16] MEDS ORDERED: HYDROCODONE/ACETA 5/325 TAB PO PRN (23:30)
[2024-04-16] MEDS ORDERED: PROMETHAZINE HCL 25 MG SUPP PR PRN (23:30)
[2024-04-16] MEDS ORDERED: OXYTOCIN/0.9 % SODIUM CHLORIDE 500 ML IV SCH (23:30)
[2024-04-16] MEDS ORDERED: PROMETHAZINE HCL 25 MG TAB PO PRN (23:30)
[2024-04-16] MEDS ORDERED: METOCLOPRAMIDE HCL 10 MG/2 ML SDV IV PRN (23:30)
[2024-04-16] MEDS ORDERED: bisacodyL 10 MG SUPP PR PRN (23:30)
[2024-04-16] MEDS ORDERED: OXYCODONE/APAP 5/325 TAB PO PRN (23:30)
[2024-04-16] MEDS ORDERED: PROCHLORPERAZINE EDISYLATE 10 MG/2 ML VIAL IV PRN (23:30)
--- NOTE | 2024-04-16 23:39 | NUR ---
04/16/24 2056 Cristal Trevizo 2322-PT TAKEN TO [facility] ROOM 106 FROM OR, PT RESTING SEMI FOWLERS, PT ALERT AND TALKING W/ STAFF, PT DENIES PAIN OR NAUSEA. VSS ON RA, RR EVEN AND UNLABORED.
[2024-04-17] MEDS ORDERED: KETOROLAC TROMETHAMINE 30 MG/ML VIAL IV SCH (02:00)
[2024-04-17] MEDS ORDERED: LACTATED RINGER'S 1,000 ML IV SCH (05:00)
[2024-04-17] MEDS ORDERED: SIMETHICONE 125 MG TABLET CHEWABLE PO SCH (07:00)
[2024-04-17] MEDS ORDERED: CEFAZOLIN SODIUM 3 GM/30 ML SYR IV SCH (07:00)
[2024-04-17] MEDS ORDERED: FERROUS SULFATE 325 MG TAB PO SCH (08:00)
[2024-04-17 08:46] LABS: HEMOGLOBIN 10.9 g/dL (12.0-18.0); MCH 24.1 (27-36); MCV 75.1 fl (81-99); RBC 4.53 M/ul (4.3-5.7); RDW 15.1 (10.5-15.0)
[2024-04-17] MEDS ORDERED: SENNOSIDES/DOCUSATE 1 EA TAB PO SCH (09:00)
[2024-04-17] MEDS ORDERED: ENOXAPARIN SODIUM 40 MG/0.4 ML SYR SUB-Q SCH (09:00)
--- NOTE | 2024-04-17 17:53 | PR ---
[facility] [address] [place], [place] [address] Signed PP Progress Notes Datetime Report Generated by CPN: 04/17/2024 17:52 SUBJECTIVE: [id number] Pain: Within Normal Limits Nausea/Vomiting: Denies Flatus: Yes Bowel Movement: No Vital Signs: [id number] Vital Signs: Reviewed; Within Normal Limits Notable Details: No severe range BPs Cardiovascular: Normal Respiratory: Normal Abdomen/Uterus: Normal Lochia: Not Done Vulva/Perineum: Not Done Breasts: Not Done CVA Tenderness: Normal Extremities: Normal Incision: Normal Progress: Normal Exam Comments: Fundus firm U-2 nontender. Incision bandaged IMPRESSION/PLAN/PROCEDURES: [id number] Impression: Normal Progression Other Impression: PreE w/ severe features Plan: Continue Present Management Other Plans: Anticipate d/c magnesium sulfate 24 hr postop Progress Notes: Pt seen and examined. Doing well. Ambulating and tolerating diet. Patrick cath in place. BPs well controlled. No EDGAR, RUQ pain, or visual changes. No fevers/chills or other concerns. Anticipate d/c magnesium at 24 hr . No questions or concerns at this time. Signing Physician: Radha Acuna DO Copies: ~ *Electronically Signed* 04/17/24 3732 RADHA ACUNA (PEYMAN) DO PATIENT NAME: CORTEZ BERNSTEIN PROGRESS NOTE DATE OF : 89 PHYSICIAN: RADHA ACUNA (JD) DO RPT #: [id number] REPORT IS CONFIDENTIAL AND NOT TO BE RELEASED WITHOUT AUTHORIZATION
[2024-04-18] MEDS ORDERED: IBUPROFEN 600 MG TAB PO SCH (02:00)
--- NOTE | 2024-04-18 08:21 | PR ---
[facility] [address], [place] [address] Signed PP Progress Notes Datetime Report Generated by CPN: 04/18/2024 08:21 SUBJECTIVE: [id number] Pain: Within Normal Limits Nausea/Vomiting: Denies Flatus: Yes Bowel Movement: Yes Vital Signs: [id number] Vital Signs: Reviewed; Within Normal Limits Notable Details: No severe range BPs Cardiovascular: Normal Respiratory: Normal Abdomen/Uterus: Normal Lochia: Normal Vulva/Perineum: Not Done Breasts: Not Done CVA Tenderness: Normal Extremities: Normal Incision: Normal Progress: Normal Exam Comments: Fundus firm U-2 nontender IMPRESSION/PLAN/PROCEDURES: [id number] Impression: Normal Progression Other Impression: PreE w/ severe features Plan: Continue Present Management Other Plans: Anticipate d/c magnesium sulfate 24 hr postop Progress Notes: Pt seen and examined. Doing well. Ambulating, voiding, stooling, and tolerating diet. Pain and lochia minimal. Blood glucose levels with adequate control. No fevers/chills. BPs normal. No other concerns. Anticipate d/c home tomorrow. Will coordinate w/ [facility] re glucose management and evaluation for sleep apnea Signing Physician: Radha Acuna DO Copies: ~ *Electronically Signed* 04/18/24 0821 RADHA ACUNA (PEYMAN) DO PATIENT NAME: CORTEZ BERNSTEIN PROGRESS NOTE DATE OF : 89 PHYSICIAN: RADHA ACUNA (JD) DO RPT #: [id number] REPORT IS CONFIDENTIAL AND NOT TO BE RELEASED WITHOUT AUTHORIZATION
[2024-04-18] MEDS ORDERED: SIMETHICONE 80 MG CHEW PO SCH (12:00)
--- NOTE | 2024-04-19 08:43 | PR ---
[facility] [address] [place], [place] [address] Signed PP Progress Notes Datetime Report Generated by ARUN: 04/19/2024 08:43 SUBJECTIVE: [id number] Pain: Within Normal Limits Nausea/Vomiting: Denies Flatus: Yes Bowel Movement: Yes Vital Signs: [id number] Vital Signs: Reviewed Notable Details: Few elevated BPs 140's Cardiovascular: Normal Respiratory: Normal Abdomen/Uterus: Normal Lochia: Normal Vulva/Perineum: Not Done Breasts: Not Done CVA Tenderness: Normal Extremities: Normal Incision: Normal Progress: Normal Exam Comments: Fundus firm U-2 nontender. Incision well healing IMPRESSION/PLAN/PROCEDURES: [id number] Impression: Normal Progression Other Impression: Pre E w/ severe features - resolved Plan: Discharge Other Plans: Anticipate d/c magnesium sulfate 24 hr postop Progress Notes: PT seen and examined. Doing well. Ambulating, voiding, and tolerating full diet. Pain and lochia minimal. . No fevers/chills. Blood glucose levels controlled w/out medications. RNs noted snoring w/ decreased O2; pt reports she has never been dx w/ sleep apnea. No EDGAR, RUQ pain, or visual changes. Plan: D/C home. Will start procardia XL 30mg po daily F/U BP check 2-3 days. F/U 2-3 wks w/ PCP for diabetic f/u and to evaluate for likely sleep apnea. Undecided on pp contraception. f/u at either [facility] or per pt preference. Signing Physician: Radha Acuna DO *Electronically Signed* 04/19/24 0843 RADHA ACUNA (PEYMAN) DO PATIENT NAME: CORTEZ BERNSTEIN KALA PROGRESS NOTE DATE OF : 89 PHYSICIAN: RADHA ACUNA (JD) DO RPT #: [id number] REPORT IS CONFIDENTIAL AND NOT TO BE RELEASED WITHOUT AUTHORIZATION
[2024-04-19 09:32] VITALS: BP 127/73
--- NOTE | 2024-04-21 16:57 | OR ---
[facility] [address] [facility] [place], [place] [address] Signed DATE OF OPERATION: 04/16/2024 SURGEON: Radha Acuna DO PREOPERATIVE DIAGNOSES: 1. Intrauterine at 37 weeks' gestation. 2. Preeclampsia with severe features. 3. History of prior section. 4. Diabetes, insulin controlled. 5. Rheumatoid arthritis. POSTOPERATIVE DIAGNOSES: 1. Intrauterine at 37 weeks' gestation. 2. Preeclampsia with severe features. 3. History of prior section. 4. Diabetes, insulin controlled. 5. Omental adhesions. 6. Umbilical hernia. 7. Rheumatoid arthritis. PROCEDURES PERFORMED: 1. Repeat low transverse section. 2. Extensive lysis of adhesions. ANESTHESIA: Spinal. ESTIMATED BLOOD LOSS: 700 mL. COMPLICATIONS: None. FINDINGS: Delivery of viable male , 9 pounds 2 ounces with Apgars of 5, 7, and 8 with delivery in the WES position via low-transverse incision. Clear amniotic fluid and nuchal cord x1. Significant omental adhesions to the anterior uterine surface and peritoneum as well as a palpable umbilical hernia. Preoperative hemoglobin 110. COMPLICATIONS: Electronically Signed By: RADHA ACUNA DO (JD) 04/21/24 1657 PATIENT NAME: CORTEZ BERNSTEIN OPERATIVE REPORT DATE OF : 89 REPORT #: [id number] PHYSICIAN: RADHA ACUNA DO (JD) PCP: RADHA CARVALHO MD REPORT IS CONFIDENTIAL AND NOT TO BE RELEASED WITHOUT AUTHORIZATION [facility] [address] [place], [place] [address] Signed None. INDICATIONS FOR THE PROCEDURE: Ms. Bernstein is a very pleasant female, who presented for testing today for diabetes and . She is incidentally found to have preeclampsia with severe features with sustained elevated blood pressures in the 180s and 190 systolic. Per protocol, she was treated with IV labetalol and magnesium sulfate was initiated. The patient was consented for repeat low transverse section once stable. Risks, benefits, and alternatives were discussed in detail with the patient. The patient understands and wishes to proceed with the procedure. TECHNIQUE: The patient was taken to the OR, where a time-out was performed to confirm correct patient and correct procedure. Spinal anesthesia was adequately established. The patient was prepped and draped in the supine position with a bump under the right hip. Patrick catheter had been previously inserted. ICPs were on and running. The patient received Ancef 3 g preoperatively per SCIP protocol. Once spinal was noted to be adequate, a Pfannenstiel skin incision was made through the prior scar and carried down to the fascia. The fascia was nicked in the midline and fascial incision was extended bilaterally using curved Hahn scissors. The fascia was grasped with Gaurav's, elevated, and the underlying rectus dissected off bluntly and sharply. Minimal adhesions were noted at this point. The rectus was divided sharply and bluntly and significant omental adhesions were noted to the peritoneum and anterior uterine surface near the fundus. The Gerard self retractor was placed. Lower segment identified and hysterotomy performed using a surgical scalpel. Hysterotomy was extended bilaterally using blunt dissection and the amnion was ruptured for clear fluid. Surgeon's hand was placed in the uterine cavity and vertex elevated into the abdomen, delivered in the WES position with the assistance of fundal pressure. Nuchal cord x1 loose was identified and reduced without difficulty. The was delivered easily and cord was doubly clamped and cut. The was handed to the waiting pediatric team for further care. Cord blood was obtained for routine analysis. The placenta was expressed, intact with a centrally inserted three-vessel cord. The uterine cavity was cleared of any remaining products of conception or clot. Hysterotomy was repaired using 0 Monocryl in two layers, the first being a running imbricating locked layer and the second being an imbricating layer. Small amount of oozing was noted in the midline and this was made hemostatic with a [id number]-[id number]-oveps of 0 Monocryl. Uterus was firm as Pitocin had been administered post delivery per Anesthesia. Dense omental adhesions were noted to the peritoneum and the anterior abdominal surface. Peritoneal and omental adhesions to the uterus were taken down using LigaSure device with excellent hemostasis. Additional extensive omental adhesions were noted involving an umbilical hernia that was palpable. Additional lysis of adhesions or repair of hernia was not performed at this time. Pelvis was irrigated and found to be hemostatic. Otherwise, uterus, tubes, and ovaries Electronically Signed By: RADHA CAMEJO) DO RAFIQ 04/21/24 1657 PATIENT NAME: CORTEZ BERNSTEIN OPERATIVE REPORT DATE OF : 89 REPORT #: [id number] PHYSICIAN: RADHA ACUNA DO (JD) PCP: RADHA CARVALHO MD REPORT IS CONFIDENTIAL AND NOT TO BE RELEASED WITHOUT AUTHORIZATION [address] [address] Signed appeared normal. Peritoneum was reapproximated using 2-0 Vicryl in a running locked manner. The rectus was made hemostatic with judicious use of Bovie electrocautery and was then plicated in the midline using 0 Vicryl in three interrupted sutures. Fascia was reapproximated using 0 Vicryl in a running nonlocked manner. Subcu was reapproximated using 3-0 Vicryl in a subcuticular stitch. The skin was then reapproximated using 2-0 Quill in a subcuticular manner. Uterus was then Crede'd for a scant amount of blood and the patient remained in the OR for postoperative TAP blocks. Sponge, needle, and instrument count was correct x2 at the end of the procedure. The patient's blood pressures remained stable throughout the operation. DO ISRAEL Walker/MODL /[id number] Copies: ~ Electronically Signed By: RADHA ACUNA DO (JD) 04/21/24 1657 PATIENT NAME: CORTEZ BERNSTEIN OPERATIVE REPORT DATE OF : 89 REPORT #: [id number] PHYSICIAN: RADHA ACUNA DO (JD) PCP: RADHA CARVALHO MD REPORT IS CONFIDENTIAL AND NOT TO BE RELEASED WITHOUT AUTHORIZATION
== END 2024-04-19 15:30 | disposition home or self-care (01) | DRG 787 ==
LOC: FBCO 14:29 → FBC 15:29 → MS 04-18 21:51 → FBC 04-18 22:02
PROVIDERS: ADMIT Obstetrics & Gynecology; ATTEND Obstetrics & Gynecology
PROC: 0DNU0ZZ Release Omentum, Open Approach (ICD-10-PCS; 2024-04-16)
PROC: 0UN90ZZ Release Uterus, Open Approach (ICD-10-PCS; 2024-04-16)
PROC: 4A1HXCZ Monitoring of Products of Conception, Cardiac Rate, External Approach (ICD-10-PCS; 2024-04-16)
PROC: 10D00Z1 Extraction of Products of Conception, Low, Open Approach (ICD-10-PCS; principal; 2024-04-16 18:27)
DX: O14.14 Severe pre-eclampsia complicating childbirth (principal); O99.354 Diseases of the nervous system complicating childbirth; O34.211 Maternal care for low transverse scar from previous cesarean delivery; O24.12 Pre-existing type 2 diabetes mellitus, in childbirth; G47.30 Sleep apnea, unspecified; Z3A.37 37 weeks gestation of pregnancy; Z37.0 Single live birth; O99.892 Other specified diseases and conditions complicating childbirth; K42.9 Umbilical hernia without obstruction or gangrene; O99.62 Diseases of the digestive system complicating childbirth; K66.0 Peritoneal adhesions (postprocedural) (postinfection); O69.81X0 Labor and delivery complicated by cord around neck, without compression, not applicable or unspecified; O99.334 Smoking (tobacco) complicating childbirth; F17.290 Nicotine dependence, other tobacco product, uncomplicated; M05.9 Rheumatoid arthritis with rheumatoid factor, unspecified; O99.214 Obesity complicating childbirth; Z86.16 Personal history of COVID-19; Z88.8 Allergy status to other drugs, medicaments and biological substances; Z79.4 Long term (current) use of insulin; Z79.82 Long term (current) use of aspirin; O99.52 Diseases of the respiratory system complicating childbirth; J45.909 Unspecified asthma, uncomplicated
CPT/HCPCS: 01961; 36415; 76942; 80053; 80307; 82570; 83615; 83735; 84156; 84550; 85027; 86850; 86900; 86901; 94799; A9270; J0690; J1100; J1650; J1885; J2003; J2274; J2371; J2405; J2590; J2795; J3010; J3475; J7121

== ENCOUNTER 2024-08-03 10:31 | Emergency (ER) | payer BC, OTHER ==
[~2024-08-03] VITALS: Ht 152.4 cm; Wt 96.1 kg
[2024-08-03 11:16] LABS: BASOPHILS 0.5 % (0-2); EOSINOPHILS 0.7 % (0-6); HEMATOCRIT 35.5 % (35.0-50.0); HEMOGLOBIN 11.4 g/dL (12.0-18.0); LYMPHOCYTES 14.1 % (24-44); MCH 23.4 (27-36); MCHC 32.2 g/dl (30-36); MCV 72.6 fl (81-99); MONOCYTES 5.7 % (0-12); PLATELET COUNT 353 K/uL (140-440); RBC 4.89 M/ul (4.3-5.7); RDW 16.3 (10.5-15.0)
[2024-08-03 11:38] LABS: ALBUMIN 2.7 g/dL (3.4-5.0); ALBUMIN/GLOBULIN RATIO 0.55 (1.1-2.4); ANION GAP 9.5 (7-21); BILIRUBIN, TOTAL 2.4 mg/dL (0.2-1.0); BUN/CREATININE RATIO 15.87 (6.0-28.6); CALCIUM 7.9 mg/dL (8.5-10.1); CREATININE, SERUM 0.63 mg/dL (0.55-1.02); POTASSIUM 3.5 mmol/L (3.5-5.1); PROTEIN, TOTAL 7.6 g/dL (6.4-8.2)
[2024-08-03] MEDS ORDERED: SODIUM CHLORIDE 0.9% 1,000 ML IV PRN (11:45)
[2024-08-03] MEDS ORDERED: metroNIDAZOLE/SODIUM CHLORIDE 500 MG/100 ML PIGGYBACK IV ONE (12:00)
[2024-08-03] MEDS ORDERED: CEFTRIAXONE SODIUM 1 GM in SODIUM CHLORIDE 0.9% 100 ML IV ONE (12:00)
[2024-08-03 12:10] LABS: LACTIC ACID, BLOOD 0.9 mmol/L (0.4-2.0)
[2024-08-03] MEDS ORDERED: ondansetron HCL 4 MG/2 ML VIAL IV ONE (13:00)
[2024-08-03 13:07] LABS: BILIRUBIN, URINE NEGATIVE (negative); BLOOD/HGB, URINE LARGE (Negative); KETONE, URINE NEGATIVE (Negative); LEUK ESTERASE, URINE NEGATIVE (negative); NITRITE, URINE NEGATIVE (negative)
[2024-08-03 13:13] LABS: BACTERIA, URINE NONE SEEN /hpf (negative); CRYSTALS, URINE NONE SEEN (0-1+); EPITHELIAL CELLS, URINE SQUAMOUS 3+ /lpf (0-1+); WHITE BLOOD CELLS, URINE 0-1 /HPF (0-5)
[2024-08-03 13:14] LABS: CASTS, URINE NONE SEEN \\lpf; COLLECTION TYPE, URINE CLEAN CATCH; REFLEX CULTURE, URINE No (No)
[2024-08-03] MEDS ORDERED: ONDANSETRON ODT4 MG PO (15:41)
[2024-08-03] MEDS ORDERED: HYDROCODON-ACE1 EA10 PO (15:41)
[2024-08-03 15:52] VITALS: BP 108/70
== END 2024-08-03 15:52 | disposition home or self-care (01) ==
LOC: ED 10:31
PROVIDERS: Emergency Medicine
DX: N83.201 Unspecified ovarian cyst, right side (principal); J45.909 Unspecified asthma, uncomplicated; Z79.899 Other long term (current) drug therapy; Z88.8 Allergy status to other drugs, medicaments and biological substances; Z87.891 Personal history of nicotine dependence
CPT/HCPCS: 36415; 74177; 76830; 76856; 80053; 81001; 83605; 83690; 84703; 85025; 87040; 96367; 96375; 99284-25; J0696; J2405; J7030; Q9967